=== PATIENT | male | born 1940 | race Caucasian/White ===

== ENCOUNTER 2016-06-11 08:30 | Emergency (ER) | payer MEDICARE, OTHER ==
[2016-06-11] MEDS ORDERED: BENZONATATE 100 MG CAPSULE PO STA (09:06)
[2016-06-11] MEDS ORDERED: DEXAMETHASONE 10 MG/ML VIAL PO STA (09:06)
[2016-06-11] MEDS ORDERED: CHERRY SYRUP 10 ML UDC PO ONE (09:10)
[2016-06-11] MEDS ORDERED: DEXAMETHASONE 10 MG/ML VIAL ONE (09:10)
[2016-06-11] MEDS ORDERED: BENZONATATE 100 MG CAPSULE PO ONE (09:10)
== END 2016-06-11 10:25 | disposition home or self-care (01) ==
DX: J18.9 Pneumonia, unspecified organism (principal); J06.9 Acute upper respiratory infection, unspecified; I10 Essential (primary) hypertension; I25.10 Atherosclerotic heart disease of native coronary artery without angina pectoris; Z95.1 Presence of aortocoronary bypass graft; Z79.82 Long term (current) use of aspirin
CPT/HCPCS: 71020; 99283; 99284; A9270

== ENCOUNTER 2016-09-26 07:58 | Outpatient (CLI) | payer MEDICARE, OTHER | END 2016-09-26 07:59 | disposition home or self-care (01) | DX: I42.0 Dilated cardiomyopathy (principal); N18.9 Chronic kidney disease, unspecified; I48.92 Unspecified atrial flutter; E78.5 Hyperlipidemia, unspecified; I10 Essential (primary) hypertension; I34.0 Nonrheumatic mitral (valve) insufficiency; I25.10 Atherosclerotic heart disease of native coronary artery without angina pectoris ==

== ENCOUNTER 2016-10-31 08:47 | Outpatient (CLI) | payer MEDICARE, OTHER ==
[2016-10-31 09:40] LABS: CALCIUM 8.9 mg/dL (8.5-10.3); CREATININE 1.4 mg/dL (0.6-1.2); POTASSIUM 4.5 mmol/L (3.5-5.0)
== END 2016-10-31 08:48 | disposition home or self-care (01) ==
LOC: LAB 08:47
PROVIDERS: ATTEND Specialist
DX: I48.92 Unspecified atrial flutter (principal); I42.0 Dilated cardiomyopathy; E78.5 Hyperlipidemia, unspecified; N18.9 Chronic kidney disease, unspecified; I12.9 Hypertensive chronic kidney disease with stage 1 through stage 4 chronic kidney disease, or unspecified chronic kidney disease; I24.0 Acute coronary thrombosis not resulting in myocardial infarction; I25.10 Atherosclerotic heart disease of native coronary artery without angina pectoris; D46.9 Myelodysplastic syndrome, unspecified
CPT/HCPCS: 36415; 80048; 83735; 84443

== ENCOUNTER 2017-01-01 06:44 | Emergency (ER) | payer MEDICARE, OTHER ==
--- NOTE | 2017-01-01 07:45 | ED Physician Documentation ---
History of Present Illness - Stated complaint Stated Complaint: MALE - Chief complaint Chief Complaint: UTI - History obtained from History obtained from: Patient - Additonal information Additional information: Patient is a 76-year-old male who complains of increasingly more difficulty in urinating. He has had these symptoms for about 10 days. He feels like his abdomen is a little full and has had some recent issues with constipation. He is both on doxazosin and taking stool softeners. He has a feeling that he cannot void completely. He denies any fever or chills. There is no nausea vomiting or lower urinary symptoms such as burning. This patient has a history of coronary disease and is status post bypass. He is currently on Pradaxa for atrial fibrillation flutter and has a history of chronic kidney disease and elevated platelets. He said his last creatinine was 1.5. He is not under the care of a urologist. Review of systems: For pertinent positive and negatives in the review of systems please see the history of present illness, otherwise all other systems have been reviewed and are negative. Dragon disclaimer: Parts of this medical record were created using voice recognition technology. Because of the inherent limitations of this system, occasional same sounding word substitutions do occur and persist despite proofreading. Please read the document for context. Review of Systems Unable to obtain: Uncooperative GI: reports: Constipation. denies: Abdominal Pain, Abdominal Swelling, Nausea, Vomiting, Diarrhea : reports: Hesitancy, Unable to Void. denies: Dysuria, Frequency, Hematuria, Discharge PD PAST MEDICAL HISTORY - Past Medical History Past Medical History: Yes Cardiovascular: Hypertension, Coronary artery disease, Atrial flutter Neuro: None Endocrine/Autoimmune: Other GI: GERD : Renal insuffiency Musculoskeletal: Osteoarthritis, Gout - Past Surgical History Past Surgical History: Yes General: Hiatal hernia repair, Colonoscopy Ortho: Shoulder arthroplasty Cardiovascular: CABG - Present Medications Home Medications: Ambulatory Orders Medication Instructions Recorded Confirmed Ascorbic Acid [Vitamin C] 500 mg PO DAILY 09/29/12 12/26/16 Metoprolol Tartrate 50 mg PO TID 11/07/14 12/26/16 Losartan [Cozaar] 50 mg PO BID 11/24/14 12/26/16 Pravastatin Sodium [Pravachol] 40 mg PO DAILY 11/24/14 12/26/16 Aspirin [Sukh] 81 mg PO DAILY 01/12/15 12/26/16 Cholecalciferol (Vitamin D3) 2,000 unit PO DAILY 01/12/15 12/26/16 [Vitamin D3] Doxazosin [Cardura] 2 mg PO DAILY 01/12/15 12/26/16 Famotidine 20 mg PO BID 01/12/15 12/26/16 Anagrelide HCl 5 tab PO DAILY 08/08/15 12/26/16 - Allergies Allergies/Adverse Reactions: Allergies Allergy/AdvReac Type Severity Reaction Status Date / Time codeine [Codeine] Allergy Intermediate Nausea Verified 01/01/17 06:56 - Social History Does the pt smoke?: No Smoking Status: Never smoker Does the pt drink ETOH?: No Does the pt have substance abuse?: No - Immunizations Immunizations are current?: Yes - POLST Patient has POLST: No PD ED PE NORMAL - Vitals Vital signs reviewed: Yes - General General: Alert and oriented X 3, No acute distress, Well developed/nourished - HEENT HEENT: Atraumatic, PERRL - Neck Neck: Supple, no meningeal sign, No bony TTP, No adenopathy - Cardiac Cardiac: No gallop, No rub, Other (Mostly regular rhythm with occasional irregularity noted) - Respiratory Respiratory: No respiratory distress, Clear bilaterally - Abdomen Abdomen: Normal bowel sounds, Soft, Non tender, Non distended - Male Male : Other (Normal exam) - Derm Derm: Normal color, Warm and dry - Extremities Extremities: No deformity, No tenderness to palpate, Normal ROM s pain, No edema - Neuro Neuro: Alert and oriented X 3, No motor deficit - Psych Psych: Normal mood, Normal affect Results - Vitals Vitals: Vital Signs - 24 hr 01/01/17 01/01/17 06:52 09:05 Temperature 36.2 C L 36.0 C L Heart Rate 74 76 Respiratory 18 16 Rate Blood Pressure 164/76 H 143/85 H O2 Saturation 100 99 Oxygen O2 Source Room air - Labs Labs: Laboratory Tests 01/01/17 01/01/17 01/01/17 07:40 07:50 07:50 WBC 4.0 L RBC 3.25 L Hgb 10.4 L Hct 31.7 L MCV 97.4 H MCH 32.1 H MCHC 32.9 RDW 20.5 H Plt Count 422 MPV 7.9 Manual Slide Review Indicated Sodium 138 Potassium 4.3 Chloride 106 Carbon Dioxide 24 Anion Gap 8.0 BUN 37 H Creatinine 1.7 H Estimated GFR (MDRD) 39 L Glucose 102 H Calcium 9.0 Urine Color YELLOW Urine Clarity CLEAR Urine pH 6.0 Ur Specific [place] <=1.005 Urine Protein NEGATIVE Urine Glucose (UA) NEGATIVE Urine Ketones NEGATIVE Urine Occult Blood NEGATIVE Urine Nitrite NEGATIVE Urine Bilirubin NEGATIVE Urine Urobilinogen 0.2 (NORMAL) Ur Leukocyte Esterase NEGATIVE Ur Microscopic Review NOT INDICATED Urine Culture Comments NOT INDICATED PD MEDICAL DECISION MAKING - ED course Complexity details: reviewed old records, reviewed results, re-evaluated patient , considered differential, d/w patient ED course: Pleasant 76-year-old male with difficulty urinating over the past 10 days. He is already on doxazosin. The urine was checked and is normal without evidence of infection that would suggest UTI or prostatitis. Quick ultrasound by me post void fails to show any severe significant urinary retention however his prostate does appear enlarged on my quick ultrasound examination. Blood work shows no significant abnormality other than mild increase in his creatinine from 1.5-1.7. Abdominal x-ray demonstrates mild fecal retention what might be causally related to some outlet obstruction. I am recommending that the patient increase fluids, continue the doxazosin, address constipation with Metamucil and continue consider prostate herbal supplementation. Disposition: To home Clinical impression: 1. Suspected BPH with mild urinary obstruction without urinary retention Departure - Departure Disposition: 01 Home, Self Care Clinical Impression: Prostatic hypertrophy, benign, with obstruction Condition: Good Instructions: ED Prostate Enlarged Follow-Up: Manuel Salgado MD [Primary Care Provider] - Comments: Your creatinine has increased to 1.7. There is no evidence of a urinary tract infection or any quick fix. I would continue the doxazosin and try to address the mild constipation seen on x-ray today. My personal recommendation is to increase soluble fiber intake with Metamucil and a lot of water. you might also try herbal supplementations for prostate disease including saw palmetto. If your urinary stream and obstruction worsens please return
[2017-01-01 07:59] LABS: BILIRUBIN,URINE NEGATIVE (NEGATIVE)
[2017-01-01 08:02] LABS: UA CHARGE (STRIP ONLY) YES; UR CULTURE IF IND NOT INDICATED
[2017-01-01 08:08] LABS: CREATININE 1.7 mg/dL (0.6-1.2); POTASSIUM 4.3 mmol/L (3.5-5.0)
[2017-01-01 08:10] LABS: BASOPHILS # (AUTO) 0.1 10^3/uL (0.0-0.1); EOSINOPHILS % (AUTO) 1.2 %; HCT - HEMATOCRIT 31.7 % (42.0-52.0); HGB - HEMOGLOBIN 10.4 g/dL (14.0-18.0); LYMPHOCYTES # (AUTO) 0.6 10^3/uL (1.5-3.5); MEAN CORPUSCULAR HEMOGLOBIN 32.1 pg (27.0-31.0); MEAN CORPUSCULAR HGB CONC 32.9 g/dL (32.0-36.0); MEAN CORPUSCULAR VOLUME 97.4 fL (80.0-94.0); MEAN PLATELET VOLUME 7.9 fL (7.4-11.4); MONOCYTES # (AUTO) 0.4 10^3/uL (0.0-1.0); MONOCYTES % (AUTO) 9.5 %; NEUTROPHILS # (AUTO) 2.8 10^3/uL (1.5-6.6); NEUTROPHILS % (AUTO) 71.3 %; NUCLEATED RED BLOOD CELLS AUTO 0.3 /100WBC; RED BLOOD COUNT 3.25 10^6/uL (4.70-6.10); RED CELL DISTRIBUTION WIDTH 20.5 % (12.0-15.0)
--- NOTE | 2017-01-01 08:35 | XRAY Preliminary Report ---
Exam: XR Abdomen 1 View IMPRESSION: Nonobstructive bowel gas pattern. [facility] SITE ID: [id number]
--- NOTE | 2017-01-01 08:38 | XRAY Report ---
EXAM: ABDOMEN RADIOGRAPHY EXAM DATE: 01/01/2017 08:10 AM. CLINICAL HISTORY: Gen ab pain, inability to uurinate well. COMPARISON: None. TECHNIQUE: 1 view. FINDINGS: Bowel Gas Pattern: Within normal limits. No dilated loops. Other: Dextroscoliosis of the upper lumbar spine. IMPRESSION: Nonobstructive bowel gas pattern. [facility] Referring Provider Line: [phone] SITE ID: [id number]
[2017-01-01 09:06] VITALS: BP 143/85
[2017-01-01 09:19] LABS: PLATELET MORPHOLOGY RARE GIANT PLATELETS (NORMAL)
== END 2017-01-01 09:29 | disposition home or self-care (01) ==
LOC: ED 06:44
DX: N40.1 Benign prostatic hyperplasia with lower urinary tract symptoms (principal); N13.8 Other obstructive and reflux uropathy; I25.10 Atherosclerotic heart disease of native coronary artery without angina pectoris; Z95.1 Presence of aortocoronary bypass graft; I12.9 Hypertensive chronic kidney disease with stage 1 through stage 4 chronic kidney disease, or unspecified chronic kidney disease; N18.9 Chronic kidney disease, unspecified; I48.91 Unspecified atrial fibrillation; Z79.01 Long term (current) use of anticoagulants
CPT/HCPCS: 36415; 74000; 80048; 81001; 81003; 84153; 85025; 87086; 99283; 99284

== ENCOUNTER 2017-05-10 04:07 | Emergency (ER) | payer MEDICARE, OTHER ==
[2017-05-10 04:38] LABS: BASOPHILS # (AUTO) 0.1 10^3/uL (0.0-0.1); LYMPHOCYTES # (AUTO) 0.8 10^3/uL (1.5-3.5); MONOCYTES # (AUTO) 0.3 10^3/uL (0.0-1.0); MONOCYTES % (AUTO) 8.6 %; NEUTROPHILS # (AUTO) 2.8 10^3/uL (1.5-6.6)
[2017-05-10 04:45] LABS: ALBUMIN/GLOBULIN RATIO 1.8 (1.0-2.2); BASOPHILS % (AUTO) 2.1 %; BILIRUBIN,TOTAL 1.3 mg/dL (0.2-1.0); CALCIUM 9.1 mg/dL (8.5-10.3); CREATININE 1.5 mg/dL (0.6-1.2); EOSINOPHILS % (AUTO) 0.6 %; HCT - HEMATOCRIT 32.9 % (42.0-52.0); HGB - HEMOGLOBIN 10.8 g/dL (14.0-18.0); LYMPHOCYTES % (AUTO) 19.4 %; MEAN CORPUSCULAR HEMOGLOBIN 32.2 pg (27.0-31.0); MEAN CORPUSCULAR HGB CONC 32.9 g/dL (32.0-36.0); MEAN PLATELET VOLUME 7.8 fL (7.4-11.4); NEUTROPHILS % (AUTO) 69.3 %; NUCLEATED RED BLOOD CELLS AUTO 0.4 /100WBC; POTASSIUM 4.3 mmol/L (3.5-5.0); RED BLOOD COUNT 3.36 10^6/uL (4.70-6.10); TOTAL PROTEIN 6.7 g/dL (6.7-8.2); UNCORRECTED WHITE BLOOD COUNT 4.1 x10^3/uL; WHITE BLOOD COUNT 4.1 x10^3/uL (4.8-10.8)
--- NOTE | 2017-05-10 04:49 | ED Physician Documentation ---
History of Present Illness - Stated complaint Stated Complaint: ABD PAIN - Chief complaint Chief Complaint: Abd Pain - Additonal information Additional information: 76-year-old male Presents with concern about a palpable mass in his left upper quadrant. He reports several months of constipation that he has been treating with [id number] stool softeners. He first noticed something masslike 2 weeks ago. He has had no vomiting, no fevers. Review of Systems Ten Systems: 10 systems reviewed and negative Constitutional: reports: Other (no trauma) Eyes: reports: Reviewed and negative Ears: reports: Reviewed and negative Nose: reports: Reviewed and negative Throat: reports: Reviewed and negative Cardiac: reports: Reviewed and negative Respiratory: reports: Reviewed and negative GI: reports: Other (see hpi) : reports: Reviewed and negative Skin: reports: Reviewed and negative Musculoskeletal: reports: Reviewed and negative Neurologic: reports: Reviewed and negative PD PAST MEDICAL HISTORY - Past Medical History Cardiovascular: Hypertension, Coronary artery disease, Atrial flutter Neuro: None Endocrine/Autoimmune: Other GI: GERD : Renal insuffiency Musculoskeletal: Osteoarthritis, Gout Other Past Medical History: thrombocythemia - Past Surgical History Past Surgical History: Yes General: Hiatal hernia repair, Colonoscopy Ortho: Shoulder arthroplasty Cardiovascular: CABG - Present Medications Home Medications: Ambulatory Orders Medication Instructions Recorded Confirmed Ascorbic Acid [Vitamin C] 500 mg PO DAILY 09/29/12 05/10/17 Metoprolol Tartrate 50 mg PO TID 11/07/14 05/10/17 Losartan [Cozaar] 50 mg PO BID 11/24/14 05/10/17 Pravastatin Sodium [Pravachol] 40 mg PO DAILY 11/24/14 05/10/17 Cholecalciferol (Vitamin D3) 2,000 unit PO DAILY 01/12/15 05/10/17 [Vitamin D3] Doxazosin [Cardura] 2 mg PO DAILY 01/12/15 05/10/17 Famotidine 20 mg PO BID 01/12/15 05/10/17 Anagrelide HCl 5 tab PO DAILY 90 Days #450 capsule 04/19/17 05/10/17 Epoetin [Procrit] 40,000 unit SUBQ Q7D 05/10/17 05/10/17 - Allergies Allergies/Adverse Reactions: Allergies Allergy/AdvReac Type Severity Reaction Status Date / Time codeine [Codeine] Allergy Intermediate Nausea Verified 01/01/17 06:56 - Social History Does the pt smoke?: No Smoking Status: Never smoker Does the pt drink ETOH?: No Does the pt have substance abuse?: No - Immunizations Immunizations are current?: Yes - POLST Patient has POLST: No PD ED PE NORMAL - Vitals Vital signs reviewed: Yes - General General: Alert and oriented X 3, No acute distress - HEENT HEENT: PERRL - Neck Neck: Supple, no meningeal sign - Cardiac Cardiac: RRR, No murmur - Respiratory Respiratory: Clear bilaterally - Abdomen Abdomen: Normal bowel sounds, Soft, Non tender, Non distended, Other (Likely palpable spleen patient's left upper quadrant,) - Derm Derm: Warm and dry - Extremities Extremities: No deformity - Neuro Neuro: Alert and oriented X 3 - Psych Psych: Normal mood, Normal affect Results - Vitals Vitals: Vital Signs - 24 hr 05/10/17 05/10/17 04:14 05:51 Temperature 36.2 C L Heart Rate 92 65 Respiratory 18 18 Rate Blood Pressure 193/72 H 143/57 H O2 Saturation 99 100 Oxygen O2 Source Room air - Labs Labs: Laboratory Tests 05/10/17 05/10/17 04:18 04:18 WBC 4.1 L RBC 3.36 L Hgb 10.8 L Hct 32.9 L MCV 98.0 H MCH 32.2 H MCHC 32.9 RDW 20.0 H Plt Count 269 MPV 7.8 Neut # 2.8 Lymph # 0.8 L [place] # 0.3 Eos # 0.0 Baso # 0.1 Absolute Nucleated RBC 0.01 Nucleated RBC % 0.4 Manual Slide Review Indicated Platelet Estimate NORMAL (130-450,000) Platelet Morphology NORMAL APPEARANCE RBC Morph Micro Appear 1+ POIKILOCYTOSIS Sodium 137 Potassium 4.3 Chloride 104 Carbon Dioxide 24 Anion Gap 9.0 BUN 30 H Creatinine 1.5 H Estimated GFR (MDRD) 46 L Glucose 104 H Calcium 9.1 Total Bilirubin 1.3 H AST 16 ALT 17 Alkaline Phosphatase 96 Total Protein 6.7 Albumin 4.3 Globulin 2.4 Albumin/Globulin Ratio 1.8 PD MEDICAL DECISION MAKING - ED course ED course: Patient has large splenomegaly on CT of the abdomen. I have discussed these results with him and need to follow-up with his primary care doctor and possibly his lcsw about what the source of this may be. Discussed precautions for avoiding any injuries to the abdomen. We also discussed his lytic focus in his L3 vertebral body. He will follow-up with his primary care doctor regarding this.Return precautions reviewed. Creatinine 1.5 at patient's baseline. Hemoglobin, platelets,White blood cells within recent baseline. Departure - Departure Disposition: 01 Home, Self Care Clinical Impression: Splenomegaly, Constipation Condition: Good Follow-Up: Manuel Salgado MD [Primary Care Provider] - Comments: Your spleen is quite enlarged. You need to make an appointment with your regular doctor to discuss this. Your lcsw with also be able to help you. You should discuss with them whether this may be related to your medications. You should take care to ensure that you will not encounter any injuries to your abdomen as this can cause serious bleeding. (no contact sports, no snowboarding ) Return to the emergency department if you develop severeAbdominal pain, vomiting , inability to eat or drink. You also have a finding in your lower spine that you need to discuss with your doctor. Continue to take your stool softeners for your constipation. The enlargement of your spleen may be making this worse.
[2017-05-10] MEDS ORDERED: SODIUM CHLORIDE 0.9% 1,000 ML IV ONE (04:57)
[2017-05-10] MEDS ORDERED: IOPAMIDOL-300 100 ML VIAL ONE (05:06)
[2017-05-10 05:10] LABS: PLATELET ESTIMATE, MANUAL NORMAL (130-450,000) (NORMAL); PLATELET MORPHOLOGY NORMAL APPEARANCE (NORMAL)
[2017-05-10] MEDS ORDERED: IOPAMIDOL-300 100 ML VIAL IVP ONE (05:36)
--- NOTE | 2017-05-10 05:59 | CT Preliminary Report ---
Exam: CT ABDOMEN/PELVIS W/ IMPRESSION: 1. Splenomegaly measuring 20 cm. 2. Lytic focus in the L3 vertebral body which is indeterminate for benign versus malignant. 3. Mild cardiomegaly with prior median sternotomy. [facility] SITE ID: [id number]
--- NOTE | 2017-05-10 06:02 | CT Report ---
EXAM: CT ABDOMEN AND PELVIS EXAM DATE: 05/10/2017 05:22 AM. CLINICAL HISTORY: Abdominal mass. COMPARISONS: None. TECHNIQUE: Routine helical CT imaging was performed through the abdomen and pelvis. IV contrast: 70ML ISOVUE 300. Enteric contrast: No. Reconstructions: Coronal and sagittal. In accordance with CT protocol optimization, one or more of the following dose reduction techniques w ere utilized for this exam: automated exposure control, adjustment of mA and/or KV based on patient s ize, or use of iterative reconstructive technique. FINDINGS: Lung Bases: Mild bibasilar atelectasis. Median sternotomy. Mild cardiomegaly. Liver: No focal lesion identified. Gallbladder/Bile Ducts: Unremarkable. Spleen: Enlarged at 20 cm. Pancreas: Normal. Adrenal Glands: Normal. Kidneys: Bilateral cortical thinning. No obvious mass or hydronephrosis. Peritoneal Cavity/Bowel: No bowel obstruction seen. Trace amount of free fluid. No free air. No diver ticulitis. No lymphadenopathy. Appendix appears normal. Pelvic Organs: Normal. The bladder and visualized pelvic organs are within normal limits. Vasculature: Mild atherosclerosis. No aortic aneurysm. Bones: Degenerative changes in the spine. Mild grade 1 degenerative spondylolisthesis at L4-L5 and L5 -S1. Scoliosis. Lytic focus in the L3 vertebral body. Other: None. IMPRESSION: 1. Splenomegaly measuring 20 cm. 2. Lytic focus in the L3 vertebral body which is indeterminate for benign versus malignant. 3. Mild cardiomegaly with prior median sternotomy. [facility] Referring Provider Line: [phone] SITE ID: [id number]
[2017-05-10 06:46] VITALS: BP 144/64
== END 2017-05-10 06:46 | disposition home or self-care (01) ==
LOC: ED 04:07
DX: R16.1 Splenomegaly, not elsewhere classified (principal); K59.00 Constipation, unspecified; D47.3 Essential (hemorrhagic) thrombocythemia; I10 Essential (primary) hypertension; I25.10 Atherosclerotic heart disease of native coronary artery without angina pectoris; Z95.1 Presence of aortocoronary bypass graft
CPT/HCPCS: 36415; 74177; 80053; 85025; 96360; 99283; 99284; Q9967

== ENCOUNTER 2017-06-01 12:42 | Outpatient (CLI) | payer MEDICARE, OTHER ==
[2017-06-01] MEDS ORDERED: GADOBUTROL 7.5 MMOL/7.5 ML VIAL ONE (12:48)
[2017-06-01] MEDS ORDERED: GADOBUTROL 7.5 MMOL/7.5 ML VIAL IVP ONE (13:35)
--- NOTE | 2017-06-02 16:22 | MRI Report ---
EXAM: MRI LUMBAR SPINE WITHOUT AND WITH CONTRAST EXAM DATE: 06/01/2017 01:52 PM. CLINICAL HISTORY: Lytic bone lesions on x-ray. Enlarged spleen. COMPARISONS: CT 05/10/2017. TECHNIQUE: Multiplanar, multisequence T1-weighted and fluid-sensitive sequences of the lumbar spine f rom T12 to S1 before and after administration of intravenous contrast. Other: None. IV contrast: Gado linium. FINDINGS: Spinal Cord: The conus terminates at L1. The conus medullaris and cauda equina are unremarkable. Alignment: The yeast pusher image demonstrates a leftward lumbar scoliosis with a Jordan angle of 21 degrees f rom L2 to L5 on this [id number] examination. Bone Marrow: The prior CT demonstrates that T12 is a transitional vertebral body with only a right-si ded rib. No fractures. Type II endplate change is at T12/L1, L1-L2, L2-L3, and L3-L4. No marrow edema . There is a benign hemangioma within the L3 vertebral body. Disk Levels/Facets: All visualized intervertebral disks are desiccated. T11-T12: Moderate disk height loss is accompanied by anterior endplate spurring. A posterior disk/ost eophyte complex and moderate facet osteoarthritis result in mild spinal canal and moderate left donnie inal narrowing. T12-l1: Moderate disk height loss is accompanied by anterior endplate spurring. A posterior disk/oste ophyte complex and mild facet osteoarthritis result in mild spinal canal and mild left foraminal narr owing. L1-L2: Mild disk height loss is accompanied by anterior endplate spurring. A broad-based disk bulge a nd mild ligamentum flavum hypertrophy result in mild spinal canal, mild right foraminal, and minimal left foraminal narrowing. L2-L3: Severe disk height loss is accompanied by anterior endplate spurring. A posterior disk/osteoph yte complex, moderate ligamentum flavum hypertrophy, and mild facet hypertrophy result in mild spinal canal and bilateral foraminal narrowing. L3-L4: Moderate disk height loss is accompanied by anterior endplate spurring. A posterior disk/osteo phyte complex, mild ligamentum flavum hypertrophy, and mild bilateral facet hypertrophy result in mil d spinal canal, moderate right foraminal, and mild left foraminal narrowing. L4-L5: Moderate disk height loss is accompanied by anterior endplate spurring. A broad-based posterio r disk protrusion, mild ligamentum flavum hypertrophy, and moderate bilateral facet hypertrophy resul t in mild spinal canal, moderate right foraminal, and minimal left foraminal narrowing. L5-S1: A broad-based posterior disk protrusion and mild facet hypertrophy result in minimal spinal ca nal and moderate right foraminal narrowing. Spinal Canal: No enhancing masses within the spinal canal. No epidural abscess. Musculature: Mild edema is in the bilateral posterior paraspinal musculature. This may represent musc ular strain. Other: The visualized retroperitoneum is unremarkable. IMPRESSION: 1. Moderate leftward lumbar scoliosis. 2. Transitional T12 vertebral body. 3. Benign hemangioma within L3. 4. Mild spinal canal and moderate left foraminal narrowing at T11-T12 due to disk and posterior eleme nt degenerative changes. 5. Mild spinal canal and left foraminal narrowing at T12/L1 due to disk and posterior element degener ative changes. 6. Mild spinal canal and right foraminal narrowing at L1-L2 due to disk and posterior element degener ative changes. 7. Mild spinal canal and bilateral foraminal narrowing at L2-L3 due to disk and posterior element deg enerative changes. 8. Mild spinal canal, moderate right foraminal, and mild left foraminal narrowing at L3-L4 due to dis k and posterior element degenerative changes. 9. Mild spinal canal, moderate right foraminal narrowing at L4-L5 due to disk and posterior element d egenerative changes. 10. Moderate right foraminal narrowing at L5-S1 due to disk and posterior element degenerative change s. Comment: The following findings are so common in adults without low back pain that while we report th eir presence, they must be interpreted with caution and in the context of the clinical situation. (Re danay San et al, Spine 2001) Prevalence of findings in patients without low back pain: Disk degeneration (any evidence): 92% Disk desiccation/T2 signal loss: 83% Disk height loss: 56% Disk bulge: 64% Disk protrusion: 32% Annular tear/high intensity zone: 38% [facility] Referring Provider Line: [phone] SITE ID: [id number]
== END 2017-06-01 12:43 | disposition home or self-care (01) ==
LOC: DI 12:42
PROVIDERS: ATTEND Family Medicine
DX: M51.36 Other intervertebral disc degeneration, lumbar region (principal); M51.34 Other intervertebral disc degeneration, thoracic region; M47.896 Other spondylosis, lumbar region; M47.894 Other spondylosis, thoracic region; M51.26 Other intervertebral disc displacement, lumbar region; M41.86 Other forms of scoliosis, lumbar region; D18.09 Hemangioma of other sites
CPT/HCPCS: 72158; A9585

== ENCOUNTER 2017-12-04 08:01 | Outpatient (CLI) | payer MEDICARE, OTHER | END 2017-12-04 08:02 | disposition home or self-care (01) | LOC: LAB 08:01 | PROVIDERS: ATTEND Specialist | DX: I10 Essential (primary) hypertension (principal); E78.5 Hyperlipidemia, unspecified | CPT/HCPCS: 83735 ==

== ENCOUNTER 2018-01-01 07:44 | Outpatient (CLI) | payer MEDICARE, OTHER ==
[2018-01-01 08:23] LABS: BASOPHILS % (AUTO) 2.9 %; MEAN CORPUSCULAR HEMOGLOBIN 32.8 pg (27.0-31.0); MEAN CORPUSCULAR HGB CONC 34.1 g/dL (32.0-36.0); MEAN CORPUSCULAR VOLUME 96.1 fL (80.0-94.0); MEAN PLATELET VOLUME 7.4 fL (7.4-11.4); MONOCYTES % (AUTO) 7.2 %; NEUTROPHILS % (AUTO) 71.9 %; PLT - PLATELET COUNT 234 10^3/uL (130-450); RED BLOOD COUNT 3.37 10^6/uL (4.70-6.10); RED CELL DISTRIBUTION WIDTH 18.2 % (12.0-15.0); WHITE BLOOD COUNT 4.9 x10^3/uL (4.8-10.8)
[2018-01-01 08:42] LABS: ALBUMIN 4.1 g/dL (3.2-5.5); ALBUMIN/GLOBULIN RATIO 1.6 (1.0-2.2); BILIRUBIN,TOTAL 0.9 mg/dL (0.2-1.0); CALCIUM 9.1 mg/dL (8.5-10.3); CREATININE 1.5 mg/dL (0.6-1.2); TOTAL PROTEIN 6.6 g/dL (6.7-8.2); URIC ACID 12.1 mg/dL (2.6-7.2)
[2018-01-01 08:44] LABS: ABNORMAL LYMPHS % (MANUAL) 0 %
[2018-01-01 08:48] LABS: BAND NEUTROPHILS % (MANUAL) 8 %; LYMPHOCYTES # (MANUAL) 0.8 10^3/uL (1.5-3.5); LYMPHOCYTES % (MANUAL) 17 %; METAMYELOCYTES % (MANUAL) 8 %; MONOCYTES # (MANUAL) 0.3 10^3/uL (0.0-1.0); MYELOCYTES % (MANUAL) 2 %; NEUTROPHILS # (MANUAL) 3.2 10^3/uL (1.5-6.6); NEUTROPHILS % (MANUAL) 57 %
[2018-01-01 08:51] LABS: DIFFERENTIAL COMMENT MANUAL DIFFERENTIAL; PLATELET ESTIMATE, MANUAL NORMAL (130-450,000) (NORMAL); PLATELET MORPHOLOGY NORMAL APPEARANCE (NORMAL)
== END 2018-01-01 07:45 | disposition home or self-care (01) ==
LOC: LAB 07:44
PROVIDERS: ATTEND Family Medicine
DX: M1A.2 Drug-induced chronic gout (principal)
CPT/HCPCS: 36415; 80053; 84550; 85025; 85651

== ENCOUNTER 2018-04-09 09:30 | Outpatient (CLI) | payer MEDICARE, OTHER ==
--- NOTE | 2018-04-09 09:56 | XRAY Report ---
Reason: KNOWN GOUT Procedure Date: 04/09/2018 Accession Number: [id number] / [id number] Procedure: XR - Finger(s) LT CPT Code: FULL RESULT: EXAM: LEFT 1st/2nd/3rd/4th/5th DIGIT RADIOGRAPHY EXAM DATE: 04/09/2018 09:39 AM. CLINICAL HISTORY: Known gout. Swelling in left index finger for months. COMPARISON: None. TECHNIQUE: 3 views. FINDINGS: Bones: Normal. No fracture or bone lesion. Joints: Normal. No subluxations. Soft Tissues: There is focal soft tissue swelling along the ulnar aspect of the DIP second digit slightly increased in density relative to other soft tissues. 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 [facility]
== END 2018-04-09 09:31 | disposition home or self-care (01) ==
LOC: DI 09:30
PROVIDERS: ATTEND Internal Medicine
DX: M1A.0421 Idiopathic chronic gout, left hand, with tophus (tophi) (principal)
CPT/HCPCS: 73140

== ENCOUNTER 2018-09-05 18:21 | Emergency (ER) | payer MEDICARE, OTHER ==
[2018-09-05 18:31] VITALS: BP 168/51
--- NOTE | 2018-09-05 20:29 | XRAY Report ---
Reason: L index finger swelling, poss FB Procedure Date: 09/05/2018 Accession Number: [id number] / [id number] Procedure: XR - Finger(s) LT CPT Code: FULL RESULT: EXAM: LEFT SECOND DIGIT RADIOGRAPHY EXAM DATE: 09/05/2018 07:40 PM. CLINICAL HISTORY: Left index finger swelling, possible foreign body. COMPARISON: FINGER(S) LT 04/09/2018 9:34 AM. TECHNIQUE: 3 views. FINDINGS: Bones: No fracture, bony lesion or erosions identified, particularly in the region of the second DIP joint. Joints: Joint spaces are well preserved about the second digit. Minimal osteophytes present about the second MCP and PIP joints. More moderate osteoarthritis present about the first and third MCP joints. Soft Tissues: No radiopaque foreign body evident. Soft tissue swelling lateral to the second DIP joint is similar to prior exam. IMPRESSION: 1. No radiopaque foreign body. 2. Lateral second DIP joint region soft tissue swelling unchanged since prior exam. Gouty arthropathy remains a possibility. 3. No osseous erosions identified. Mild changes of osteoarthritis as described. [facility]
[2018-09-05] MEDS ORDERED: predniSONE 20 MG TABLET PO STA (20:46)
--- NOTE | 2018-09-05 20:52 | ED Physician Documentation ---
History of Present Illness - Stated complaint Stated Complaint: LT INDEX FINGER SWELLING/THORNS - Chief complaint Chief Complaint: Trauma Ext - History obtained from History obtained from: Patient - History of Present Illness Timing: How many days ago (2) Pain level max: 4 Pain level now: 3 - Additonal information Additional information: 78-year-old male presents with swelling of the left index finger ongoing for the past 2-3 days. He states that he had similar swelling a few months ago after he was working with [employer]. There is no redness, no swelling of the remainder of the digit. Does have a history of gout in his toes. No recent injury. Worse with movement and better with rest Review of Systems Constitutional: denies: Fever Skin: denies: Rash PD PAST MEDICAL HISTORY - Past Medical History Past Medical History: Yes Cardiovascular: Hypertension, Coronary artery disease, Atrial flutter Endocrine/Autoimmune: Other GI: GERD : Renal insuffiency Musculoskeletal: Osteoarthritis, Gout - Past Surgical History Past Surgical History: Yes General: Hiatal hernia repair, Colonoscopy Ortho: Shoulder arthroplasty Cardiovascular: CABG - Present Medications Home Medications: Ambulatory Orders Medication Instructions Recorded Confirmed Ascorbic Acid [Vitamin C] 500 mg PO DAILY 09/29/12 09/01/18 Metoprolol Tartrate 50 mg PO TID 11/07/14 09/01/18 Losartan [Cozaar] 100 mg PO BID 11/24/14 09/01/18 Pravastatin Sodium [Pravachol] 40 mg PO DAILY 11/24/14 09/01/18 Cholecalciferol (Vitamin D3) 2,000 unit PO DAILY 01/12/15 09/01/18 [Vitamin D3] Doxazosin [Cardura] 2 mg PO DAILY 01/12/15 09/01/18 Epoetin [Procrit] 40,000 unit SUBQ Q7D 05/10/17 09/01/18 Furosemide 1 tab PO DAILY 12/04/17 09/01/18 amLODIPine [Norvasc] 10 mg PO DAILY 01/29/18 09/01/18 predniSONE [Prednisone] 40 mg PO DAILY #10 tablet 09/05/18 - Allergies Allergies/Adverse Reactions: Allergies Allergy/AdvReac Type Severity Reaction Status Date / Time codeine [Codeine] Allergy Intermediate Nausea Verified 09/05/18 18:30 - Social History Does the pt smoke?: No Smoking Status: Never smoker Does the pt drink ETOH?: No Does the pt have substance abuse?: No - Immunizations Immunizations are current?: Yes - POLST Patient has POLST: No PD ED PE NORMAL - Vitals Vital signs reviewed: Yes - General General: Alert and oriented X 3, No acute distress - Derm Derm: Warm and dry - Extremities Extremities: Other (Left index finger, DIP joint - Localized swelling, gouty tophi present. No redness. No streaks. No tenderness along the tendon sheath. Normal examination of the nail. Neurovascularly intact) - Neuro Neuro: Alert and oriented X 3 Results - Vitals Vitals: Vital Signs - 24 hr 09/05/18 09/05/18 09/05/18 18:29 19:29 20:58 Temperature 37.0 C Heart Rate 86 87 Respiratory 17 17 17 Rate Blood Pressure 168/51 H O2 Saturation 99 99 Oxygen O2 Source Room air - Rads (name of study) Left index finger x-ray Radiology: Prelim report reviewed, EMP read contemporaneously, See rad report (1. No radiopaque foreign body. 2. Lateral second DIP joint region soft tissue swelling unchanged since prior exam. Gouty arthropathy remains a possibility. 3. No osseous erosions identified. Mild changes of osteoarthritis as described. ) PD MEDICAL DECISION MAKING - ED course Complexity details: reviewed results, re-evaluated patient, considered differential, d/w patient ED course: 78-year-old male with what appears to be gouty arthritis to the left index finger. Tophi present. Will place on steroids and follow-up with his doctor. No evidence of infection. Patient counseled regarding signs and symptoms for which I believe and urgent re-evaluation would be necessary. Patient with good understanding of and agreement to plan and is comfortable going home at this time This document was made in part using voice recognition software. While efforts are made to proofread this document, sound alike and grammatical errors may occur. Departure - Departure Disposition: 01 Home, Self Care Clinical Impression: Tophaceous gout of joint Condition: Good Instructions: ED Arthritis Gout Follow-Up: Bran Dominguez MD [Primary Care Provider] - Within 1 week Prescriptions: predniSONE [Prednisone] 40 mg PO DAILY #10 tablet Comments: Take the steroids until gone. Return if you worsen. Follow-up with your doctor for further care. Discharge Date/Time: 09/05/18 20:59
== END 2018-09-05 20:59 | disposition home or self-care (01) ==
LOC: ED 18:21
DX: M10.9 Gout, unspecified (principal); I10 Essential (primary) hypertension; I25.10 Atherosclerotic heart disease of native coronary artery without angina pectoris; Z95.1 Presence of aortocoronary bypass graft
CPT/HCPCS: 73140; 99283; J7512

== ENCOUNTER 2023-06-21 11:55 | Emergency (ER) | payer MEDICARE, OTHER ==
--- NOTE | 2023-06-21 12:30 | ED Physician Documentation ---
History of Present Illness - Stated complaint Stated Complaint: LT SHOULDER PX - Chief complaint Chief Complaint: General - History obtained from History obtained from: Patient - Additonal information Additional information: 83-year-old gentleman with history of myelofibrosis with anemia neutropenia and splenomegaly. He is seen in our [facility] clinic. He has been transfusion dependent was last transfused a week ago. About 10 days ago give or take he was doing some exercises, a "plank," and feels like he injured his shoulder. There is no specific fall or anything like that though. He developed significant and progressive bruising in the left shoulder and chest wall and also a subconjunctival hemorrhage on the left. He states he is always had problems with bleeding and bruising issues but is not anticoagulated or on any antiplatelet agents. He did have labs drawn this morning at the [facility] clinic and his hemoglobin has been trending up, it was 7.4 today which is the best it has been for a while and his platelet count was 111. It has been a few months since he has had kidney function checked and was noted to have worsening kidney disease then. PD PAST MEDICAL HISTORY - Past Medical History Past Medical History: Yes Cardiovascular: Hypertension, Coronary artery disease, Atrial flutter Endocrine/Autoimmune: Other GI: GERD : Renal insuffiency Musculoskeletal: Osteoarthritis, Gout - Past Surgical History Past Surgical History: Yes General: Hiatal hernia repair, Colonoscopy Ortho: Shoulder arthroplasty Cardiovascular: CABG - Present Medications Home Medications: Ambulatory Orders Medication Instructions Recorded Confirmed Ascorbic Acid [Vitamin C] 500 mg PO DAILY 09/29/12 05/31/23 Losartan [Cozaar] 100 mg PO BID 11/24/14 05/31/23 Pravastatin Sodium [Pravachol] 40 mg PO DAILY 11/24/14 05/31/23 Cholecalciferol (Vitamin D3) 2,000 unit PO DAILY 01/12/15 05/31/23 [Vitamin D3] Doxazosin [Cardura] 4 mg PO DAILY 01/12/15 05/31/23 Epoetin [Procrit] 40,000 unit SUBQ Q7D 05/10/17 05/31/23 Furosemide 1 tab PO DAILY 12/04/17 05/31/23 amLODIPine [Norvasc] 10 mg PO DAILY 01/29/18 05/31/23 Ruxolitinib Phosphate [Jakafi] 20 mg PO BID 12/08/18 05/31/23 Atorvastatin [Lipitor] 20 mg PO DAILY 01/04/23 05/31/23 Metoprolol Succinate [Toprol Xl] 50 mg PO BID 01/04/23 05/31/23 Omeprazole 20 mg PO DAILY 01/04/23 05/31/23 allopurinoL [Zyloprim] 100 mg PO DAILY 01/04/23 05/31/23 Darbepoetin [Aranesp] 300 mcg SUBQ UD 03/22/23 05/31/23 - Allergies Allergies/Adverse Reactions: Allergies Allergy/AdvReac Type Severity Reaction Status Date / Time codeine [Codeine] Allergy Intermediate Nausea Verified 06/21/23 12:02 - Social History Does the pt smoke?: No Smoking Status: Never smoker Does the pt drink ETOH?: No Does the pt have substance abuse?: No - Immunizations Immunizations are current?: Yes - POLST Patient has POLST: No PD ED PE NORMAL - Vitals Vital signs reviewed: Yes - General General: Alert and oriented X 3, No acute distress - HEENT HEENT: PERRL, EOMI, Other (There is a subconjunctival hemorrhage on the medial left eye.) - Neck Neck: Supple, no meningeal sign, No bony TTP - Cardiac Cardiac: RRR, No murmur - Respiratory Respiratory: No respiratory distress, Clear bilaterally - Abdomen Abdomen: Non tender - Derm Derm: Normal color, Warm and dry - Extremities Extremities: Other (There is very significant bruising just inferior to the left anterior shoulder tracking down into the chest wall. Mild tenderness of the anterior left shoulder and decreased range of motion due to pain.) - Neuro Neuro: Alert and oriented X 3, Normal speech Results - Vitals Vitals: Vital Signs - 24 hr 06/21/23 06/21/23 06/21/23 11:59 12:32 14:11 Temperature 36.7 C Heart Rate 85 84 82 Respiratory 15 16 16 Rate Blood Pressure 138/73 H 132/82 H 138/83 H O2 Saturation 98 97 95 Oxygen O2 Source Room air - Labs Labs: Laboratory Tests 06/21/23 06/21/23 12:59 12:59 PT 11.8 INR 1.1 Sodium 137 Potassium 4.5 Chloride 107 Carbon Dioxide 26 Anion Gap 4.0 L BUN 46 H Creatinine 1.8 H Estimated GFR (MDRD) 36 L Glucose 99 Calcium 8.7 - Rads (name of study) Three-view x-ray of the left shoulder is unremarkable Relevant Findings:: Final report received, EMP independent interpretation of test PD Medical Decision Making - ED course ED course: From a blood loss perspective his blood counts are actually better than they have been, so although the bruising is remarkable, he does not need transfusion and his platelet count is improved over prior 2. Will check coags and renal function and a shoulder x-ray. Departure - Departure Disposition: Home, Self Care Clinical Impression: Spontaneous ecchymosis Condition: Good Record reviewed to determine appropriate education?: Yes Comments: I do not see any significant abnormality on your shoulder x-ray and your coagula tion numbers are normal. Your kidney function has improved slightly since the last time it was checked in March. You can use gentle heat on the area for pain and you can take Tylenol as well. Return for new or worsening symptoms. Forms: PCP List
[2023-06-21 13:12] LABS: INR 1.1 (0.8-1.2); PT - PROTHROMBIN TIME 11.8 secs (9.9-12.6)
[2023-06-21 13:18] LABS: CALCIUM 8.7 mg/dL (8.5-10.3); CREATININE 1.8 mg/dL (0.6-1.3); POTASSIUM 4.5 mmol/L (3.5-4.5)
[2023-06-21 14:14] VITALS: BP 138/83; O2SAT 95
--- NOTE | 2023-06-21 15:00 | XRAY Report ---
PROCEDURE: Shoulder 2+V LT INDICATIONS: Sholder inj TECHNIQUE: 3 views of the shoulder were acquired. COMPARISON: None FINDINGS: Bones: No fractures or dislocations. No suspicious bony lesions. Visualized ribs appear intact. Soft tissues: No suspicious soft tissue calcifications. IMPRESSION: Unremarkable shoulder radiographs Reviewed by: Mohit Méndez MD on 06/21/2023 1:59 PM [place] Approved by: Mohit Méndez MD on 06/21/2023 1:59 PM [facility] Station ID: [id number]
== END 2023-06-21 14:30 | disposition home or self-care (01) ==
LOC: ED 11:55
DX: M25.512 Pain in left shoulder (principal); R58 Hemorrhage, not elsewhere classified; I10 Essential (primary) hypertension; Z95.1 Presence of aortocoronary bypass graft
CPT/HCPCS: 36415; 80048; 85610; 99283; 99284

== ENCOUNTER 2023-12-21 07:41 | Emergency (ER) | payer MEDICARE, OTHER ==
--- NOTE | 2023-12-21 08:10 | ED Physician Documentation ---
PD HPI DYSPNEA - Stated complaint Stated Complaint: VERY SOA, LIGHT HEADED - Chief complaint Chief Complaint: Resp - History obtained from History obtained from: Patient - Additional information Additional information: This is an 83-year-old gentleman who presents by private vehicle with his . He has a history of myelofibrosis with severe anemia and transfusion dependence. His transfusion threshold is hemoglobin of 7.5, and 5 days ago was at 7.7. He has developed increased dyspnea and orthopnea since then. He denies chest pain or new pedal edema. He does have some chronic pedal edema. No cough. PD PAST MEDICAL HISTORY - Past Medical History Cardiovascular: Hypertension, Coronary artery disease, Atrial flutter Endocrine/Autoimmune: Other GI: GERD : Renal insuffiency Musculoskeletal: Osteoarthritis, Gout - Past Surgical History Past Surgical History: Yes General: Hiatal hernia repair, Colonoscopy Ortho: Shoulder arthroplasty Cardiovascular: CABG - Present Medications Home Medications: Ambulatory Orders Medication Instructions Recorded Confirmed Ascorbic Acid [Vitamin C] 500 mg PO DAILY 09/29/12 12/21/23 Cholecalciferol (Vitamin D3) 2,000 unit PO DAILY 01/12/15 12/21/23 [Vitamin D3] Doxazosin [Cardura] 4 mg PO DAILY 01/12/15 12/21/23 Furosemide 10 mg PO DAILY 12/04/17 12/21/23 Ruxolitinib Phosphate [Jakafi] 20 mg PO BID 12/08/18 12/21/23 Atorvastatin [Lipitor] 10 mg PO DAILY 01/04/23 12/21/23 Metoprolol Succinate [Toprol Xl] 50 mg PO BID 01/04/23 12/21/23 allopurinoL [Zyloprim] 100 mg PO DAILY 01/04/23 12/21/23 Darbepoetin [Aranesp] 300 mcg SUBQ UD 03/22/23 12/21/23 danazoL [Danazol] 200 mg PO DAILY 11/25/23 11/25/23 Tbo-Filgrastim [Granix] 1 applic SUBQ ONCE 12/21/23 12/21/23 - Allergies Allergies/Adverse Reactions: Allergies Allergy/AdvReac Type Severity Reaction Status Date / Time codeine [Codeine] Allergy Intermediate Nausea Verified 12/21/23 08:00 - Social History Does the pt smoke?: No Smoking Status: Never smoker Does the pt drink ETOH?: No Does the pt have substance abuse?: No - Immunizations Immunizations are current?: Yes - POLST Patient has POLST: No PD ED PE NORMAL - Vitals Vital signs reviewed: Yes - General General: Alert and oriented X 3, No acute distress - Cardiac Cardiac: RRR, No murmur - Respiratory Respiratory: No respiratory distress, Clear bilaterally - Abdomen Abdomen: Soft, Non tender - Back Back: No CVA TTP, No spinal TTP - Derm Derm: Normal color, Warm and dry - Extremities Extremities: Other (2-3+ pitting pedal edema, symmetric and chronic per patient.) - Neuro Neuro: Alert and oriented X 3 Results - Vitals Vitals: Vital Signs - 24 hr 12/21/23 12/21/23 12/21/23 07:55 09:59 10:14 Temperature 36.5 C 36.6 C Heart Rate 78 72 Heart Rate [ 75 Monitoring electrodes] Respiratory 16 18 16 Rate Blood Pressure 189/75 H 158/68 H Blood Pressure 164/74 H [Left Brachial artery] O2 Saturation 99 98 12/21/23 12/21/23 12/21/23 10:35 11:00 12:45 Temperature 36.6 C Heart Rate 70 Heart Rate [ 73 72 Monitoring electrodes] Respiratory 18 18 18 Rate Blood Pressure 158/68 H Blood Pressure 158/68 H 127/72 [Left Brachial artery] O2 Saturation 99 97 98 Oxygen O2 Source Room air - Labs Labs: Laboratory Tests 12/21/23 12/21/23 12/21/23 08:12 08:12 08:12 WBC 5.2 RBC 2.18 L Hgb 7.5 L Hct 24.4 L MCV 111.9 H MCH 34.4 H MCHC 30.7 L RDW 25.1 H Plt Count 134 MPV 10.0 Neut # (Auto) Not Reportable Lymph # (Auto) Not Reportable Bollinger # (Auto) Not Reportable Eos # (Auto) Not Reportable Baso # (Auto) Not Reportable Absolute Nucleated RBC Not Reportable Total Counted 100 Band Neuts % (Manual) 6 Abnorm Lymph % (Manual) 0 Metamyelocytes % 9 H Myelocytes % 7 H Nucleated RBC % Not Reportable Neutrophils # (Manual) 3.8 Lymphocytes # (Manual) 0.4 L Monocytes # (Manual) 0.2 Eosinophils # (Manual) 0.1 Basophils # (Manual) 0.0 Manual Slide Review Indicated WBC Morphology NORMAL APPEARANCE Platelet Estimate NORMAL (130-450,000) Platelet Morphology NORMAL APPEARANCE RBC Morph Micro Appear 1+ POLYCHROMASIA Sodium 137 Potassium 4.5 Chloride 108 Carbon Dioxide 23 Anion Gap 6.0 BUN 54 H Creatinine 2.5 H Estimated GFR (MDRD) 25 L Glucose 91 Calcium 8.8 Total Bilirubin 0.5 AST 24 ALT 29 Alkaline Phosphatase 54 Total Protein 5.7 L Albumin 3.8 Globulin 1.9 L Albumin/Globulin Ratio 2.0 Blood Type A POSITIVE Antibody Screen NEGATIVE Crossmatch IS Only See Detail - Rads (name of study) Single view chest x-ray showing cardiomegaly and moderate vascular patsy estion Relevant Findings:: Final report received, EMP independent interpretation of test PD Medical Decision Making - ED course ED course: 83-year-old gentleman with transfusion dependence presents with lightheadedness and shortness of breath which she feels is consistent with prior episodes of worsening anemia requiring transfusion. He is pale but hemodynamically stable. Initial CBC is notable for hemoglobin of 7.5 which is right at his transfusion threshold with macrocytosis. The macrocytosis is common. I discussed this with the patient at the bedside and he seems surprised. His recollection of the severity of his symptomatology would suggest to him that he is feeling too badly for a hemoglobin of 7.5. That said he is wanting a transfusion and that is reasonable but I will obtain a chest x-ray despite clear lungs to evaluate for alternative causes of shortness of breath. On my independent interpretation of his chest x-ray it does look like he has some CHF. Further history from the patient obtained, he was on a 20 mg dose of Lasix but recently halved that on the advice of his rn rehab. Now I believe that the combination of the CHF and fluid overload with the anemia is probably causing the severity of his symptoms. As such he is administered 40 mg of Lasix IV prior to transfusion. Departure - Departure Disposition: 01 Home, Self Care Clinical Impression: Symptomatic anemia Congestive heart failure Qualifiers: Heart failure type: unspecified Heart failure chronicity: acute on chronic Qu alified Code(s): I50.9 - Heart failure, unspecified Condition: Stable Instructions: ED CHF General Comments: As discussed, I think your shortness of breath and symptomatology today were a combination of your anemia as well as some congestive heart failure which may be related to the recent decrease in your furosemide dosing. You did receive a shot of furosemide here (40 mg and would recommend a low-sodium diet and increasing your furosemide back to 20 mg a day starting tomorrow. Follow-up with the heme-onc nurse practitioner on Saturday as scheduled. Return if worse. Forms: PCP List
[2023-12-21 08:20] LABS: BASOPHILS % (AUTO) 0.6 %; EOSINOPHILS % (AUTO) 0.4 %; HCT - HEMATOCRIT 24.4 % (42.0-52.0); HGB - HEMOGLOBIN 7.5 g/dL (14.0-18.0); LYMPHOCYTES % (AUTO) 10.1 %; MEAN CORPUSCULAR HEMOGLOBIN 34.4 pg (27.0-31.0); MEAN CORPUSCULAR HGB CONC 30.7 g/dL (32.0-36.0); MEAN CORPUSCULAR VOLUME 111.9 fL (80.0-94.0); MONOCYTES % (AUTO) 4.5 %; NEUTROPHILS % (AUTO) 70.3 %; PLT - PLATELET COUNT 134 10^3/uL (130-450); RED BLOOD COUNT 2.18 10^6/uL (4.70-6.10); RED CELL DISTRIBUTION WIDTH 25.1 % (12.0-15.0); WHITE BLOOD COUNT 5.2 x10^3/uL (4.8-10.8)
[2023-12-21 08:22] LABS: SLIDE REVIEW? Indicated
[2023-12-21 08:23] LABS: ABNORMAL LYMPHS % (MANUAL) 0 %
[2023-12-21 08:50] LABS: ALBUMIN 3.8 g/dL (3.2-5.5); BILIRUBIN,TOTAL 0.5 mg/dL (0.2-1.0); CALCIUM 8.8 mg/dL (8.5-10.3); CREATININE 2.5 mg/dL (0.6-1.3); POTASSIUM 4.5 mmol/L (3.5-4.5); TOTAL PROTEIN 5.7 g/dL (6.4-8.9)
[2023-12-21 08:53] LABS: BAND NEUTROPHILS % (MANUAL) 6 %; EOSINOPHILS # (MANUAL) 0.1 10^3/uL (0-0.7); LYMPHOCYTES # (MANUAL) 0.4 10^3/uL (1.5-3.5); LYMPHOCYTES % (MANUAL) 7 %; METAMYELOCYTES % (MANUAL) 9 %; MONOCYTES # (MANUAL) 0.2 10^3/uL (0.0-1.0); MYELOCYTES % (MANUAL) 7 %; NEUTROPHILS # (MANUAL) 3.8 10^3/uL (1.5-6.6)
[2023-12-21 08:56] LABS: PLATELET ESTIMATE, MANUAL NORMAL (130-450,000) (NORMAL); PLATELET MORPHOLOGY NORMAL APPEARANCE (NORMAL)
[2023-12-21 08:57] LABS: WBC MORPHOLOGY (MULTIPLE) NORMAL APPEARANCE (NORMAL)
[2023-12-21] MEDS: FUROSEMIDE 40 MG/4 ML VIAL IVP STA (09:17)
--- NOTE | 2023-12-21 09:20 | XRAY Report ---
PROCEDURE: Chest 1V INDICATIONS: dyspnea TECHNIQUE: One view of the chest was acquired. COMPARISON: None FINDINGS: Surgical changes and devices: Right shoulder tendon anchors Lungs and pleura: Heart size enlarged. Moderate vascular congestion with underlying patchy pulmonary infiltrate. Midline sternotomy wires noted. Bones and chest wall: No suspicious bony lesions. Overlying soft tissues appear unremarkable. IMPRESSION: Cardiomegaly, moderate vascular congestion, and patchy centralized pulmonary infiltrate. Infection ve rsus edema. Reviewed by: Mohit Méndez MD on 12/21/2023 8:18 AM [facility] Approved by: Mohit Méndez MD on 12/21/2023 8:18 AM [facility] Station ID: [id number]
[2023-12-21 13:40] VITALS: BP 169/74; O2SAT 91
== END 2023-12-21 13:37 | disposition home or self-care (01) ==
LOC: ED 07:41
DX: I11.0 Hypertensive heart disease with heart failure (principal); I50.9 Heart failure, unspecified; I25.10 Atherosclerotic heart disease of native coronary artery without angina pectoris; I48.91 Unspecified atrial fibrillation; M10.9 Gout, unspecified; Z95.1 Presence of aortocoronary bypass graft; Z79.899 Other long term (current) drug therapy; D64.89 Other specified anemias
CPT/HCPCS: 36415; 36430; 71045; 80053; 85025; 86850; 86900; 86901; 86920; 96374; 99284; 99285; P9040

== ENCOUNTER 2024-01-11 10:09 | Emergency (ER) | payer MEDICARE, OTHER ==
--- NOTE | 2024-01-11 10:36 | ED Physician Documentation ---
PD HPI DYSPNEA - Stated complaint Stated Complaint: SOB,LIGHT HEADED - Chief complaint Chief Complaint: Resp - History obtained from History obtained from: Patient PD PAST MEDICAL HISTORY - Past Medical History Past Medical History: Yes Cardiovascular: Hypertension, Coronary artery disease, Atrial flutter Endocrine/Autoimmune: Other GI: GERD : Renal insuffiency Musculoskeletal: Osteoarthritis, Gout - Past Surgical History Past Surgical History: Yes General: Hiatal hernia repair, Colonoscopy Ortho: Shoulder arthroplasty Cardiovascular: CABG - Present Medications Home Medications: Ambulatory Orders Medication Instructions Recorded Confirmed Ascorbic Acid [Vitamin C] 500 mg PO DAILY 09/29/12 12/23/23 Cholecalciferol (Vitamin D3) 2,000 unit PO DAILY 01/12/15 12/23/23 [Vitamin D3] Doxazosin [Cardura] 4 mg PO DAILY 01/12/15 12/23/23 Furosemide 20 mg PO DAILY 12/04/17 12/23/23 Ruxolitinib Phosphate [Jakafi] 20 mg PO BID 12/08/18 12/23/23 Atorvastatin [Lipitor] 10 mg PO DAILY 01/04/23 12/23/23 Metoprolol Succinate [Toprol Xl] 50 mg PO BID 01/04/23 12/23/23 allopurinoL [Zyloprim] 100 mg PO DAILY 01/04/23 12/23/23 Darbepoetin [Aranesp] 300 mcg SUBQ UD 03/22/23 12/23/23 danazoL [Danazol] 200 mg PO DAILY 11/25/23 12/23/23 Tbo-Filgrastim [Granix] 1 applic SUBQ ONCE 12/21/23 12/23/23 - Allergies Allergies/Adverse Reactions: Allergies Allergy/AdvReac Type Severity Reaction Status Date / Time codeine [Codeine] Allergy Intermediate Nausea Verified 01/11/24 10:27 - Social History Does the pt smoke?: No Smoking Status: Never smoker Does the pt drink ETOH?: No Does the pt have substance abuse?: No - Immunizations Immunizations are current?: Yes - POLST Patient has POLST: No Results - Vitals Vitals: Vital Signs - 24 hr 01/11/24 10:20 Temperature 36.6 C Heart Rate 80 Respiratory 24 Rate Blood Pressure 88/66 L O2 Saturation 95 Oxygen O2 Source Room air Departure - Departure
[2024-01-11 10:47] LABS: BASOPHILS % (AUTO) 0.8 %; EOSINOPHILS % (AUTO) 0.2 %; HCT - HEMATOCRIT 21.7 % (42.0-52.0); LYMPHOCYTES % (AUTO) 7.5 %; MEAN CORPUSCULAR HEMOGLOBIN 35.8 pg (27.0-31.0); MEAN CORPUSCULAR HGB CONC 31.8 g/dL (32.0-36.0); MEAN CORPUSCULAR VOLUME 112.4 fL (80.0-94.0); MEAN PLATELET VOLUME 10.1 fL (7.4-11.4); MONOCYTES % (AUTO) 4.1 %; PLT - PLATELET COUNT 134 10^3/uL (130-450); RED BLOOD COUNT 1.93 10^6/uL (4.70-6.10); RED CELL DISTRIBUTION WIDTH 23.6 % (12.0-15.0); WHITE BLOOD COUNT 4.9 x10^3/uL (4.8-10.8)
[2024-01-11 10:52] LABS: HGB - HEMOGLOBIN 6.9 g/dL (14.0-18.0)
[2024-01-11 10:53] LABS: ABNORMAL LYMPHS % (MANUAL) 0 %
[2024-01-11 11:10] LABS: ALBUMIN 3.3 g/dL (3.2-5.5); ALBUMIN/GLOBULIN RATIO 1.7 (1.0-2.2); BILIRUBIN,TOTAL 0.5 mg/dL (0.2-1.0); CALCIUM 8.2 mg/dL (8.5-10.3); CREATININE 3.2 mg/dL (0.6-1.3); POTASSIUM 4.8 mmol/L (3.5-4.5); TOTAL PROTEIN 5.2 g/dL (6.4-8.9)
[2024-01-11] MEDS: SODIUM CHLORIDE 0.9% 500 ML IV STA (11:15)
[2024-01-11 11:17] LABS: TROPONIN I HIGH SENSITIVITY 48.3 ng/L (2.3-19.7)
[2024-01-11 11:18] LABS: BAND NEUTROPHILS % (MANUAL) 9 %; LYMPHOCYTES # (MANUAL) 0.2 10^3/uL (1.5-3.5); LYMPHOCYTES % (MANUAL) 5 %; METAMYELOCYTES % (MANUAL) 4 %; MONOCYTES # (MANUAL) 0.2 10^3/uL (0.0-1.0); NEUTROPHILS # (MANUAL) 4.3 10^3/uL (1.5-6.6)
[2024-01-11 11:19] LABS: DIFFERENTIAL COMMENT MANUAL DIFFERENTIAL; PLATELET ESTIMATE, MANUAL NORMAL (130-450,000) (NORMAL); PLATELET MORPHOLOGY NORMAL APPEARANCE (NORMAL)
--- NOTE | 2024-01-11 11:20 | XRAY Report ---
PROCEDURE: Chest 1V INDICATIONS: Chest pain TECHNIQUE: One view of the chest was acquired. COMPARISON: 12/21/2023 FINDINGS: Surgical changes and devices: Midline sternal wires Lungs and pleura: Patchy bilateral pulmonary infiltrates noted particularly in the left upper lobe Mediastinum: Mediastinal contours appear normal. Heart size is enlarged Bones and chest wall: No suspicious bony lesions. Overlying soft tissues appear unremarkable. IMPRESSION: Patchy bilateral pulmonary infiltrates consistent with pneumonia Reviewed by: Mohit Méndez MD on 01/11/2024 10:18 AM [facility] Approved by: Mohit Méndez MD on 01/11/2024 10:18 AM [facility] Station ID: [id number]
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
[2024-01-11] MEDS: cefTRIAXone 1 GM in SODIUM CHLORIDE 0.9% MINIBAG 100 ML IV STA (12:51)
[2024-01-11] MEDS: AZITHROMYCIN INJ 500 MG in SODIUM CHLORIDE 0.9% 250 ML IV STA (13:30)
[2024-01-11 15:18] LABS: B. PARAPERTUSSIS- RESP PCR PAN NOT DETECTED; B. PERTUSSIS- RESP PCR PANEL NOT DETECTED; C. PNEUMONIAE- RESP PCR PANEL NOT DETECTED; CORONAVIRUS 229E-RESP PCR NOT DETECTED; CORONAVIRUS HKU1-RESP PCR NOT DETECTED; CORONAVIRUS NL63-RESP PCR NOT DETECTED; CORONAVIRUS OC43-RESP PCR NOT DETECTED; HUMAN METAPNEUMOVIRUS NOT DETECTED; INFLUENZA A- RESP PCR PANEL NOT DETECTED; INFLUENZA B - RESP PCR PANEL NOT DETECTED; M. PNEUMONIAE- RESP PCR PANEL NOT DETECTED; PARAINFLUENZA VIRUS 1 NOT DETECTED; PARAINFLUENZA VIRUS 2 NOT DETECTED; PARAINFLUENZA VIRUS 3 NOT DETECTED; PARAINFLUENZA VIRUS 4 NOT DETECTED; RHINOVIRUS/ENTEROVIRUS NOT DETECTED; RSV- RESP PCR PANEL NOT DETECTED; SARS-CoV-2 -RESP PCR PANEL NOT DETECTED
[2024-01-11 15:41] VITALS: BP 117/80; O2SAT 97
== END 2024-01-11 15:35 | disposition home or self-care (01) ==
LOC: ED 10:09
DX: J18.9 Pneumonia, unspecified organism (principal); N17.9 Acute kidney failure, unspecified; I11.0 Hypertensive heart disease with heart failure; I50.9 Heart failure, unspecified; Z79.899 Other long term (current) drug therapy
CPT/HCPCS: 36415; 36430; 71045; 80053; 83690; 83735; 83880; 84484; 85025; 86850; 86900; 86901; 86920; 87633; 93005; 99284; 99285; P9040; 84145; 87040

== ENCOUNTER 2024-01-14 16:33 | Emergency (ER) | payer MEDICARE, OTHER ==
[2024-01-14 16:54] VITALS: BP 119/77; O2SAT 97
== END 2024-01-14 17:47 | disposition left against medical advice (07) ==
LOC: ED 16:33
DX: Z53.21 Procedure and treatment not carried out due to patient leaving prior to being seen by health care provider (principal)

== ENCOUNTER 2024-01-22 19:55 | Inpatient (IN) | payer MEDICARE, OTHER ==
--- NOTE | 2024-01-22 20:04 | ED Physician Documentation ---
History of Present Illness - Stated complaint Stated Complaint: SOA - History obtained from History obtained from: Patient - Additonal information Additional information: Patient is an 83-year-old male presenting to the emergency department with past medical history of myelofibrosis requiring packed red blood cell transfusions persistent anemia every other week. Patient follows with oncology here at the [facility]. Patient has past medical history also remarkable for atrial fibrillation, CHF on Lasix 20 mg and recent pneumonia that he was diagnosed with about 2 weeks ago. Patient finished antibiotics for this today with antibiotics and azithromycin. Patient went to his PCP this morning and they instructed he come to the emergency department for worsening shortness of breath. Patient started on 2 L nasal cannula oxygen on arrival for hypoxia 80% on arrival. Patient improving with such radiation here in the emergency department. Patient notes worsening leg swelling today despite continue to take 20 mg of Lasix at home. Patient notes no appreciable wheezing he continues to have orthopnea at home. He denies any fevers or chills but has persistent cough at home with the symptoms. Patient's last blood transfusion was PD PAST MEDICAL HISTORY - Past Medical History Cardiovascular: Hypertension, Coronary artery disease, Atrial flutter Endocrine/Autoimmune: Other GI: GERD : Renal insuffiency Musculoskeletal: Osteoarthritis, Gout - Past Surgical History Past Surgical History: Yes General: Hiatal hernia repair, Colonoscopy Ortho: Shoulder arthroplasty Cardiovascular: CABG - Present Medications Home Medications: Ambulatory Orders Medication Instructions Recorded Confirmed Ascorbic Acid [Vitamin C] 500 mg PO DAILY 09/29/12 01/20/24 Cholecalciferol (Vitamin D3) 2,000 unit PO DAILY 01/12/15 01/20/24 [Vitamin D3] Doxazosin [Cardura] 4 mg PO DAILY 01/12/15 01/20/24 Furosemide 20 mg PO DAILY 12/04/17 01/20/24 Atorvastatin [Lipitor] 20 mg PO DAILY 01/04/23 01/20/24 Metoprolol Succinate [Toprol Xl] 50 mg PO DAILY 01/04/23 01/20/24 allopurinoL [Zyloprim] 100 mg PO DAILY 01/04/23 01/20/24 Darbepoetin [Aranesp] 300 mcg SUBQ UD 03/22/23 01/20/24 danazoL [Danazol] 200 mg PO BID 11/25/23 01/20/24 Tbo-Filgrastim [Granix] 1 applic SUBQ ONCE 12/21/23 01/20/24 Amox/Clav 875/125 [Augmentin] 1 each PO Q12H #20 tablet 01/11/24 01/20/24 Azithromycin [Zithromax] 1 tab PO DAILY #4 tab 01/11/24 01/20/24 Clobetasol Propionate 1 applic TOP BID PRN 01/11/24 01/20/24 Ruxolitinib Phosphate [Jakafi] 20 mg PO BID 01/11/24 01/20/24 fluorouraciL [Efudex] 1 applic TOP BID PRN 01/11/24 01/20/24 - Allergies Allergies/Adverse Reactions: Allergies Allergy/AdvReac Type Severity Reaction Status Date / Time codeine [Codeine] Allergy Intermediate Nausea Verified 01/22/24 20:08 - Social History Does the pt smoke?: No Smoking Status: Never smoker Does the pt drink ETOH?: No Does the pt have substance abuse?: No - Immunizations Immunizations are current?: Yes - POLST Patient has POLST: No Results - Vitals Vitals: Vital Signs - 24 hr 01/22/24 01/22/24 01/22/24 20:08 20:40 21:24 Temperature 36.4 C L Heart Rate 73 74 70 Respiratory 21 25 H 22 Rate Blood Pressure 102/74 133/84 H 111/70 O2 Saturation 92 97 95 If not protocol 2 2 : Oxygen Flow, liters/minute Oxygen O2 Source Nasal cannula Oxygen Flow Rate 2 - EKG (time done) 8 EKG releavant findings:: EKG personally interpreted by author of this note. Relevant findings are: Rate: Rate (enter#), Fady, Tachy, Other Rhythm: Atrial fibrillation Dale: Normal QRS: Normal Ischemia: Normal ST segments Compare to prior EKG: Unchanged from prior EKG Computer interpretation: Agree with computer 2023 EKG releavant findings:: EKG personally interpreted by author of this note. Relevant findings are: Rate: Rate (enter#) Rhythm: Atrial fibrillation Dale: Normal QRS: Normal Ischemia: Normal ST segments Compare to prior EKG: Unchanged from prior EKG Computer interpretation: Agree with computer - Labs Labs: Laboratory Tests 01/22/24 01/22/24 01/22/24 20:13 20:13 20:13 WBC 7.5 RBC 2.08 L Hgb 7.4 L Hct 23.2 L MCV 111.5 H MCH 35.6 H MCHC 31.9 L RDW 23.1 H Plt Count 154 MPV 10.8 Neut # (Auto) Not Reportable Lymph # (Auto) Not Reportable [place] # (Auto) Not Reportable Eos # (Auto) Not Reportable Baso # (Auto) Not Reportable Absolute Nucleated RBC Not Reportable Total Counted 100 Band Neuts % (Manual) 3 Abnorm Lymph % (Manual) 0 Metamyelocytes % 1 H Nucleated RBC % Not Reportable Neutrophils # (Manual) 6.8 H Lymphocytes # (Manual) 0.5 L Monocytes # (Manual) 0.2 Eosinophils # (Manual) 0.0 Basophils # (Manual) 0.0 Differential Comment MANUAL DIFFERENTIAL Platelet Estimate NORMAL (130-450,000) Platelet Morphology NORMAL APPEARANCE RBC Morph Micro Appear 1+ SCHISTOCYTES PT 13.3 H INR 1.2 Sodium 137 Potassium 4.4 Chloride 108 Carbon Dioxide 22 Anion Gap 7.0 BUN 58 H Creatinine 2.9 H Estimated GFR (MDRD) 21 L Glucose 110 H Calcium 7.8 L Magnesium 1.8 Total Bilirubin 0.5 AST 33 ALT 46 Alkaline Phosphatase 65 Troponin I High Sens 67.6 H* Total Protein 5.5 L Albumin 3.2 Globulin 2.3 Albumin/Globulin Ratio 1.4 PD Medical Decision Making - ED course Complexity details: reviewed old records, reviewed results, re-evaluated patient ED course: Patient is an 83-year-old male presenting to the emergency department with past medical history of CHF myelofibrosis, anemia secondary to myelofibrosis requiring biweekly transfusions history of ARASH/CKD and atrial fibrillation. Patient presents to the emergency department with worsening leg swelling shortness of breath. On arrival patient started on 2 L nasal cannula for hypoxia on arrival. Patient on physical exam has diminished breath sounds on auscultation with crackles and rails on auscultation of bilateral lungs and 3+ p itting edema to lower extremities. Patient is on Lasix 20 mg daily he has not missed any doses. Vitals on 2 L patient saturating at 95% no signs of tachypnea blood pressure soft at 103 SBP no tachycardia appreciated. EKG obtained here in the emergency department showing no signs of ACS compared to previous EKG on 01/08. Patient is troponin obtained here in emergency department elevated at 67. Previous troponin 2 weeks ago shows significant increase as baseline is closer to 48. Will repeat troponin here in emergency department at 2-hour marga. Chest x-ray obtained here in the emergency department does show findings concerning for left sided abscess given previous. Chest x-ray showed no pneumonia on 01/10 and symptoms continue to persist with enlarged opacity on left side of the lung at this time. 2130: Discussed case with pulmonology Dr. Akhtar at [facility] and he recommends transfer for further pulmonology workup. He is agreeable with cefepime and vancomycin IV antibiotics at this time. Blood cultures will be obtained prior to starting antibiotics. Discussed possible IV fungal treatment with him however he recommends holding off until further evaluation and management of abscess can be evaluated. He is agreeable with only chest x-ray being performed at this time given significant kidney dysfunction. Discussed case with patient he is agreeable with transfer. Discussed worsening kidney function with creatinine at 2.7 chest x-ray also showing findings of fluid overload and elevated troponin levels. Will repeat troponin here in the emergency department at 1015 at 2-hour marga and repeat EKG at this time as well to ensure no signs of ACS or worsening elevation in troponin. Patient will be transferred when bed is available at either [facility] or [facility] for further kayleen luation by pulmonology. Patient understands and is agreeable with this plan. Additionally given patient's anemia at 7.4 this does appear baseline for patient in the past he does receive transfusions at 7.5 or below however given concerning for fluid overload at this time we will hold off on blood transfusion. Patient understands and is agreeable iw this plan. 1020: Patient taken over by Dr. Cochran at this time.
[2024-01-22 20:23] LABS: BASOPHILS % (AUTO) 0.4 %; EOSINOPHILS % (AUTO) 0.1 %; HCT - HEMATOCRIT 23.2 % (42.0-52.0); HGB - HEMOGLOBIN 7.4 g/dL (14.0-18.0); LYMPHOCYTES % (AUTO) 5.6 %; MEAN CORPUSCULAR HEMOGLOBIN 35.6 pg (27.0-31.0); MEAN CORPUSCULAR HGB CONC 31.9 g/dL (32.0-36.0); MEAN CORPUSCULAR VOLUME 111.5 fL (80.0-94.0); MEAN PLATELET VOLUME 10.8 fL (7.4-11.4); NEUTROPHILS % (AUTO) 81.2 %; PLT - PLATELET COUNT 154 10^3/uL (130-450); RED BLOOD COUNT 2.08 10^6/uL (4.70-6.10); RED CELL DISTRIBUTION WIDTH 23.1 % (12.0-15.0); WHITE BLOOD COUNT 7.5 x10^3/uL (4.8-10.8)
[2024-01-22 20:26] LABS: ABNORMAL LYMPHS % (MANUAL) 0 %
[2024-01-22 20:31] LABS: INR 1.2 (0.8-1.2); PT - PROTHROMBIN TIME 13.3 secs (9.9-12.6)
[2024-01-22 20:38] LABS: ALBUMIN 3.2 g/dL (3.2-5.5); ALBUMIN/GLOBULIN RATIO 1.4 (1.0-2.2); BILIRUBIN,TOTAL 0.5 mg/dL (0.2-1.0); CALCIUM 7.8 mg/dL (8.5-10.3); CREATININE 2.9 mg/dL (0.6-1.3); MAGNESIUM 1.8 mg/dL (1.7-2.3); POTASSIUM 4.4 mmol/L (3.5-4.5); TOTAL PROTEIN 5.5 g/dL (6.4-8.9)
[2024-01-22 20:48] LABS: BAND NEUTROPHILS % (MANUAL) 3 %; LYMPHOCYTES # (MANUAL) 0.5 10^3/uL (1.5-3.5); LYMPHOCYTES % (MANUAL) 6 %; METAMYELOCYTES % (MANUAL) 1 %; MONOCYTES # (MANUAL) 0.2 10^3/uL (0.0-1.0); NEUTROPHILS # (MANUAL) 6.8 10^3/uL (1.5-6.6)
[2024-01-22 20:49] LABS: DIFFERENTIAL COMMENT MANUAL DIFFERENTIAL; PLATELET ESTIMATE, MANUAL NORMAL (130-450,000) (NORMAL); PLATELET MORPHOLOGY NORMAL APPEARANCE (NORMAL)
--- NOTE | 2024-01-22 20:55 | XRAY Report ---
PROCEDURE: Chest 2V INDICATIONS: sob, concern for fluid overload TECHNIQUE: 2 views of the chest were acquired. COMPARISON: 01/11/2024, 12/21/2023 FINDINGS: Surgical changes and devices: Median sternotomy changes Lungs and pleura: Persistent rounded opacity in left midlung. Right perihilar alveolar opacity 2 sim ilar degree. Bibasilar alveolar opacities and small bilateral pleural effusions. No pneumothorax. Mediastinum: Cardiomegaly and stable mediastinal contour. Indistinct. Bones and chest wall: No suspicious bony lesions. Surgical anchors in the right humeral head. Overl lorenzo soft tissues appear unremarkable. IMPRESSION: Persistent bilateral opacities with new bibasilar opacities and small pleural effusions. Pulmonary ed azra may have this appearance although infection is more likely given rapid development since December 17. The left opacity is rounded and raises possibility of pulmonary abscess, neoplasm less likely due to rapid development. Consider chest CT with contrast. Reviewed by: Kathya Bill MD on 01/22/2024 8:54 PM PDT Approved by: Kathya Bill MD on 01/22/2024 8:54 PM PDT Station ID: [id number]
[2024-01-22 21:03] LABS: TROPONIN I HIGH SENSITIVITY 67.6 ng/L (2.3-19.7)
[2024-01-22] MEDS: CEFEPIME 2 GM in SODIUM CHLORIDE 0.9% MINIBAG 100 ML IV STA (22:00)
[2024-01-22] MEDS ORDERED: VANCOMYCIN 1 GM VIAL ONE (22:14)
[2024-01-22] MEDS: VANCOMYCIN INJ 2 GM in SODIUM CHLORIDE 0.9% 500 ML IV ONE (22:35)
--- NOTE | 2024-01-23 00:50 | ED Physician Documentation ---
ED Addendum - Addendum Addendum: 01/23/24 02:04 Sign out at 10:43PM. This is an 83yo M with history of MDS who was recently treated for PNA outpatient on PO antibiotics, now returned with SOB and found on CXR to have possible abscess. Low eGFR precludes contrasted CT. Patient also anemic. Troponin elevation suspected to be NSTEMI II. PA spoke with Pulmonology who accepted for transfer due to potential pulmonary abscess, and who discussed holding CT and agreeing with current treatment as follows, awaiting bed at [facility] or . IV antibiotics being given, with patient on oxygen; no antifungals; blood transfusion being held to avoid risk of TACO per sign out. Patient stable. Family was updated. PLAN: monitor pending transfer. Repeat EKG afib with rate WNL, no clear acute ischemia or immediately concerning interval prolongation, morphology similar to prior. Repeat troponin: improved. I spoke with Dr. Hanson of [facility] at 12:51AM, reviewing case on phone. She accepts pending bed availability; given wait for bed (until morning potentially), however, we will obtain CT chest without contrast here if able. I have ordered CT. No other requests. I am also scheduling AM labs; due to eGFR, holding additional cefepime and vancomycin currently (would anticipate q24hr dosing). CT: I agree with radiology reads of imaging on my independent review of imaging "FINDINGS: Image quality: Diagnostic. Chest wall and lower neck: No thyroid nodule which requires sonographic follow up. No axillary or supraclavicular adenopathy by size. Lungs and pleura: Bilateral patchy moderately severe pneumonia, with adjacent small bilateral pleural effusions but no evidence of pulmonary abscess formation.1 No pneumothorax. No suspicious pulmonary nodules which require follow up. Mediastinum: Heart size is normal. No pericardial effusion. No large vessel abnormality. No mediastinal adenopathy by size criteria. Bones: No aggressive osseous abnormality. Upper Abdomen: Unremarkable. IMPRESSION: Moderately severe bilateral pneumonia with adjacent or pneumonic pleural effusions that are small insize. No pulmonary abscess formation found. Reviewed by: Pierre Bhardwja MD on 01/23/2024 1:28 AM PDT" Per communication to me at sign out, indication for transfer was specifically concern for pulmonary abscess. Given this does not appear to be present, will consult hospitalist here to discuss admission to this facility for PNA that failed outpatient PO antibiotics. Placed consult request at roughly 1:45AM. I spoke with Dr. Alexandra on phone at roughly 1:53AM, reviewing case; per our discussion, I will confirm with radiologist no abscess on CT, and if so then we can admit patient here. I spoke with Dr. Bhardwaj at 0204, reviewing CT imaging. He confirms there is no pulmonary abscess on CT. This is now consistent with PNA requiring admission. I am updating Dr. Alexandra to admit here and requested CHANGE CONTROL COORDINATOR also update prior receiving facilities. Admitting patient in stable condition. He is currently speaking with Dr. Alexandra via video.
--- NOTE | 2024-01-23 01:30 | CT Report ---
PROCEDURE: Chest WO INDICATIONS: assess for pulmonary abscess of other infection TECHNIQUE: A CT scan of the chest was performed. Intravenous contrast media was not administered. Images were re corded and evaluated at appropriate window settings. Reformats: axial MIP of the chest, coronal and s agittal. For radiation dose reduction, the following was used: automated exposure control, adjustment of mA and/or kV according to patient size. COMPARISON: Chest plain films 01/22/2024 and 12/21/2023. FINDINGS: Image quality: Diagnostic. Chest wall and lower neck: No thyroid nodule which requires sonographic follow up. No axillary or sup raclavicular adenopathy by size. Lungs and pleura: Bilateral patchy moderately severe pneumonia, with adjacent small bilateral pleural effusions but no evidence of pulmonary abscess formation.1 No pneumothorax. No suspicious pulmonary nodules which require follow up. Mediastinum: Heart size is normal. No pericardial effusion. No large vessel abnormality. No mediastin al adenopathy by size criteria. Bones: No aggressive osseous abnormality. Upper Abdomen: Unremarkable. IMPRESSION: Moderately severe bilateral pneumonia with adjacent or pneumonic pleural effusions that are small in size. No pulmonary abscess formation found. Reviewed by: Pierre Bhardwaj MD on 01/23/2024 1:28 AM PDT Approved by: Pierre Bhardwaj MD on 01/23/2024 1:28 AM PDT Station ID: [id number]
[2024-01-23] MEDS ORDERED: ONDANSETRON 4 MG/2 ML VIAL IVP PRN (02:00)
--- NOTE | 2024-01-23 02:27 | HISTORY & PHYSICAL EXAMINATION ---
Chief Complaint - Chief Complaint Chief Complaint: SOB and hypoxia at PCP office History of Present Illness - Admitted From Admitted From:: ED - History Obtained From Records Reviewed: EMR History obtained from: ED staff and EMR and patient Exam Limitations: tele medicine - History of Present Illness HPI Comment/Other: 83M c myelofibrosis, atrial fibrillation, and CHF who presents to the ED with report of being hypoxic at PCP's office. It is 2am and patient is not a good historian. Patient rambled and unable to provide much needed insight into his presentation. Patient delved into his CHF couple of months ago and back pain for past 6 months but was not able to provide needed details about his pneumonia. He states currently no pain. He feels better after the abx and no SOB while on NC. EMR noted that patient was recently diagnosed with pneumonia 2wks ago and was treated with outpatient abx Augmentin and Azithromycin. He presented to PCP office today and was noted to be hypoxemic and then sent into the ED for evaluation. Here, patient was noted for to hypoxemic 80% while on room air. Initial CXR citing possible pulm abscess and patient was planned for transfer. Meanwhile, patient underwent CT chest and was noted for no pulm abscess and only pleural effusion stemming from the PNA. ED staff reconfirmed this findings with oncall radiologist. History - Past Medical History Cardiovascular: reports: Hypertension, Coronary artery disease, Atrial flutter Endocrine/Autoimmune: reports: Other GI: reports: GERD : reports: Renal insuffiency Musculoskeletal: reports: Osteoarthritis, Gout MRSA Hx?: No - Past Surgical History General: reports: Hiatal hernia repair, Colonoscopy Ortho: reports: Shoulder arthroplasty Cardiovascular: reports: CABG - POLST Patient has POLST: No Meds/Allgy - Home Medications Home Medications: Ambulatory Orders Medication Instructions Recorded Confirmed Doxazosin [Cardura] 4 mg PO DAILY 01/12/15 01/20/24 Furosemide 20 mg PO DAILY 12/04/17 01/20/24 Metoprolol Succinate [Toprol Xl] 50 mg PO DAILY 01/04/23 01/20/24 allopurinoL [Zyloprim] 100 mg PO DAILY 01/04/23 01/20/24 danazoL [Danazol] 200 mg PO BID 11/25/23 01/20/24 Ruxolitinib Phosphate [Jakafi] 20 mg PO BID 01/11/24 01/20/24 - Allergies Allergies/Adverse Reactions: Allergies Allergy/AdvReac Type Severity Reaction Status Date / Time codeine [Codeine] Allergy Intermediate Nausea Verified 01/22/24 20:08 Review of Systems - Other Findings Other Findings: limited. poor historian. current noted for improved breathing and no SOB. No chest pain. Exam - Vital Signs Reviewed Vital Signs: Yes Vital Signs: Vital Signs x48h Temp Pulse Resp BP Pulse Ox O2 Flow Rate 01/23/24 01:00 67 18 125/62 94 2 01/22/24 23:00 66 24 120/74 94 01/22/24 21:24 70 22 111/70 95 2 01/22/24 20:40 74 25 H 133/84 H 97 2 01/22/24 20:08 36.4 C L 73 21 102/74 92 - Physical Exam General Appearance: positive: No acute distress Eyes Bilateral: positive: Normal inspection ENT: positive: ENT inspection nml Neck: positive: Nml inspection, Trachea midline Skin: positive: Color nml Neurologic/Psychiatric: positive: CN's nml (2-12). negative: Oriented x3 Comments/Other: alert. responding and following command. not fully oriented. moving all extremities. Conclusion/Plan - Problem List (1) Acute hypoxemic respiratory failure Conclusion/Plan: -likely due to PNA. possible component of CHF. empiric abx c breathing teatment. O2 support. iv Lasix while in the hospital. (2) Pneumonia Conclusion/Plan: -empiric abx. followup cultures. breathing treatment. O2 support. Qualifiers: Pneumonia type: due to unspecified organism Laterality: bilateral Lung location: unspecified part of lung Qualified Code(s): J18.9 - Pneumonia, unspecified organism (3) Atrial fibrillation and flutter Conclusion/Plan: -rate controlled. continue metoprolol. noted no DOAC on home meds. will consult pharm for med reconciliation assistance. monitor on tele. (4) Congestive heart failure Conclusion/Plan: -recent hosp admission for CHF exacerbation. currently resp failure 2/2 PNA. followup BNP. monitor I&O. daily weigh. fluid restrict. iv Lasix while in the hosp. monitor electrolytes in am. tele monitoring (5) Prostatic hypertrophy, benign, with obstruction Conclusion/Plan: -continue home BPH med doxazosin. prn bladder scan. prn straight cath (6) CKD stage 4 secondary to hypertension Conclusion/Plan: -stable CKD stage 4. avoid nephrotoxins. watch for fluid overload. monitor I&O. followup am electrolytes and renal function monitoring (7) Demand ischemia Conclusion/Plan: -noted elevated troponin in setting PNA and CKD 4 consistent with demand type 2 VA and not true ACS. no chest pain. monitor cardiac enzymes and tele monitoring. (8) Myelofibrosis Conclusion/Plan: -managed by outpatient heme. likely immunosuppressed. empiric abx for PNA. consider reaching out to outpatient heme regarding myelofibrosis as needed. monitor CBC. consider transfusion as needed. - Lab Results Lab results reviewed: Yes Fish Bones: 01/22/24 20:13 01/22/24 20:13 - Diagnostic Imaging Results Diagnostic Imaging Results: positive: Final report reviewed Core Measures - Anticipated LOS I expect patient to be DC'd or transferred within 96 hours.: Yes - Issues Hospital Issues and Management Plan: The patient consented to receive this telemedicine service, which I performed via live two-way audiovisual equipment. The patient is at ([facility]) and I am physically in [facility]. A nurse assisted me in the visit. Full code per patient SCDs Inpatient Agatha Alexandra DO Internal Medicine Sound Tele Artificial Candy Maker - DVT/VTE - Prophylaxis VTE/DVT Device ordered at admit?: Yes Telemedicine Consult Details - Provider Location & Consult Time Telemedicine consultation conducted via videoconferencing?: Yes List names and roles of persons who participated in consult:: ED staff and patient Telemedicine provider location:: [facility] Time Telemedicine consult began:: 01:51 Time Telemedicine consult completed:: 02:51
[2024-01-23] MEDS: DOXYCYCLINE INJ 100 MG in SODIUM CHLORIDE 0.9% MINIBAG 100 ML IV SCH (02:49)
[2024-01-23] MEDS: cefTRIAXone 2 GM in SODIUM CHLORIDE 0.9% MINIBAG 100 ML IV SCH (02:52)
[2024-01-23 05:38] LABS: BASOPHILS % (AUTO) 0.3 %; EOSINOPHILS % (AUTO) 0.3 %; HCT - HEMATOCRIT 21.8 % (42.0-52.0); HGB - HEMOGLOBIN 7.1 g/dL (14.0-18.0); LYMPHOCYTES % (AUTO) 8.2 %; MEAN CORPUSCULAR HEMOGLOBIN 36.4 pg (27.0-31.0); MEAN CORPUSCULAR HGB CONC 32.6 g/dL (32.0-36.0); MEAN CORPUSCULAR VOLUME 111.8 fL (80.0-94.0); MEAN PLATELET VOLUME 9.9 fL (7.4-11.4); MONOCYTES % (AUTO) 3.3 %; NEUTROPHILS % (AUTO) 77.8 %; PLT - PLATELET COUNT 117 10^3/uL (130-450); RED BLOOD COUNT 1.95 10^6/uL (4.70-6.10); RED CELL DISTRIBUTION WIDTH 23.2 % (12.0-15.0); WHITE BLOOD COUNT 5.8 x10^3/uL (4.8-10.8)
[2024-01-23 05:40] LABS: ABNORMAL LYMPHS % (MANUAL) 0 %
[2024-01-23 05:53] LABS: ALBUMIN/GLOBULIN RATIO 1.4 (1.0-2.2); BILIRUBIN,TOTAL 0.5 mg/dL (0.2-1.0); CREATININE 2.8 mg/dL (0.6-1.3); MAGNESIUM 1.8 mg/dL (1.7-2.3); POTASSIUM 4.5 mmol/L (3.5-4.5); TOTAL PROTEIN 5.2 g/dL (6.4-8.9)
[2024-01-23 05:56] LABS: PROCALCITONIN 0.15 ng/mL (<0.5)
[2024-01-23 06:05] LABS: TROPONIN I HIGH SENSITIVITY 62.5 ng/L (2.3-19.7)
[2024-01-23 06:09] LABS: BAND NEUTROPHILS % (MANUAL) 9 %; EOSINOPHILS # (MANUAL) 0.1 10^3/uL (0-0.7); LYMPHOCYTES # (MANUAL) 0.8 10^3/uL (1.5-3.5); LYMPHOCYTES % (MANUAL) 13 %; METAMYELOCYTES % (MANUAL) 1 %; MONOCYTES # (MANUAL) 0.1 10^3/uL (0.0-1.0); MYELOCYTES % (MANUAL) 1 %; NEUTROPHILS # (MANUAL) 4.8 10^3/uL (1.5-6.6)
[2024-01-23 06:10] LABS: DIFFERENTIAL COMMENT MANUAL DIFFERENTIAL; PLATELET ESTIMATE, MANUAL DECREASED (<130,000) (NORMAL)
[2024-01-23] MEDS: IPRATROPIUM/ALBUTEROL 3 ML NEB INH SCH (06:13)
[2024-01-23] MEDS ORDERED: IPRATROPIUM/ALBUTEROL 3 ML NEB INH PRN (08:56)
[2024-01-23] MEDS: METOPROLOL SUCCINATE 50 MG TABLET PO SCH (08:58)
[2024-01-23] MEDS: ASCORBIC ACID 500 MG TABLET PO SCH (08:58)
[2024-01-23] MEDS: guaiFENesin 600 MG TABLET PO SCH (08:58)
[2024-01-23] MEDS: FUROSEMIDE 40 MG/4 ML VIAL IVP SCH (08:58)
[2024-01-23] MEDS: DOXAZOSIN 1 MG TABLET PO SCH (08:58)
[2024-01-23] MEDS: ATORVASTATIN 10 MG TABLET PO SCH (08:59)
[2024-01-23] MEDS: SACCHAROMYCES BOULARDII 250 MG CAPSULE PO SCH (08:59)
[2024-01-23] MEDS: SODIUM CHLORIDE FLUSH 0.9% 10 ML SYRINGE IVP SCH (08:59)
[2024-01-23] MEDS: allopurinoL 100 MG TABLET PO SCH (08:59)
--- NOTE | 2024-01-23 11:35 | PHARMACY PROGRESS NOTE ---
- Best Possible Medication History Admit Date and Time: 01/23/24 0200 Processed by: Pharmacy Medication History completed: Yes Patient Interview: Completed Secondary Source(s): Written medication list, Prescription bottles, Spouse/Significant other, Insurance records (PT PROVIDED HOME MED LIST WITH SPOUSE PRESENT, SURESCRIPTS RECORDS REVIEWED, PT INTERVIEW) As the person ultimately responsible for medication therapy, providers are able to order a medication from an existing home medication list in [facility] via the "Reconcile Routine" prior to Confirmation of that medication by it technical support specialist. Such practice is discouraged except when the physician, in their clinical judgment, deems that a medical need exists for a medication without regard to previous use.
--- NOTE | 2024-01-23 13:49 | PROVIDER PROGRESS NOTE ---
Subjective - Prog Note Date Prog Note Date: 01/23/24 Prog Note Time: 13:46 - Subjective Subjective: Mr. Gillespie is an 83 male with myelofibrosis, atrial fibrillation, and CHF who presents to the ED on 01/21 with shortness of breath. He was unable to provide much information on his recent symptoms in the ED, often returning to HF treatment and complications that occurred several months ago. In late spring his lasix dose was temporarily decreased from 20 mg QD to 10 mg QD and he experienced worsening HF symptoms before increasing it back to 20 mg again. He was treated in the ED for HF on 12/20. He denied any pain upon admission and was not SOB while on O2 nc at admission. EMR noted that patient was recently diagnosed with pneumonia 2wks ago and was treated with outpatient abx Augmentin and Azithromycin. He presented to PCP office today and was noted to be hypoxemic and then sent into the ED for evaluation. Here, patient was noted for to hypoxemic 80% while on room air. Initial CXR citing possible pulm abscess. CT chest was done and no pulm abscess, only pleural effusion likely stemming from the PNA. Upon assessment, he is mildy short of breath on RA with an O2 sat of 90%. His shortness of breath is about the same as it was yesterday. He has a bothersome persistent cough and speaks in 4-6 word sentences. He has chest pain with cou ghing, no persistent chest discomfort and no other pain. He denies headache, abdominal pain, nausea, vomiting, diarrhea, constipation, or dysuria. He prefers to sit upright and is ambulatory without assistance to the restroom as needed. We discussed his wishes regarding resuscitation and he would like to be a DNR/DNI but would otherwise like treatment. He does not currently want artificial nutrition. We will have an advanced care discussion with his later today as he is approaching the end of life. Current Medications - Current Medications Current Medications: Active Medications Generic Name Dose Route Start Last Admin Trade Name Freq PRN Reason Stop Dose Admin Acetaminophen 650 mg 01/23/24 02:00 Acetaminophen 325 Mg Tablet PO Q4HR PRN Pain 1 to 4, or Fever Albuterol/Ipratropium 3 ml 01/23/24 08:56 Ipratropium/Albuterol 3 Ml Neb INH Q4HR PRN Wheezing Allopurinol 100 mg 01/23/24 09:00 01/23/24 08:59 Allopurinol 100 Mg Tablet PO 100 mg DAILY EFFIE Administration Ascorbic Acid 500 mg 01/23/24 09:00 01/23/24 08:58 Ascorbic Acid 500 Mg Tablet PO 500 mg DAILY EFFIE Administration Atorvastatin Calcium 20 mg 01/23/24 09:00 01/23/24 08:59 Atorvastatin 10 Mg Tablet PO 20 mg DAILY EFFIE Administration Doxazosin Mesylate 4 mg 01/23/24 09:00 01/23/24 08:58 Doxazosin 1 Mg Tablet PO 4 mg DAILY EFFIE Administration Furosemide 20 mg 01/23/24 09:00 01/23/24 08:58 Furosemide 40 Mg/4 Ml Vial IVP 20 mg DAILY EFFIE Administration Guaifenesin 600 mg 01/23/24 09:00 01/23/24 08:58 Guaifenesin 600 Mg Tablet PO 600 mg BID EFFIE Administration Ceftriaxone Sodium 2 gm/ 100 mls @ 200 mls/hr 01/23/24 02:10 01/23/24 08:57 Sodium Chloride IV 200 mls/hr DAILY EFFIE Administration Doxycycline Hyclate 100 mg/ 100 mls @ 100 mls/hr 01/23/24 02:10 01/23/24 0 7:06 Sodium Chloride IV Infused Q12H [facility] Infusion Vancomycin HCl 1.5 gm/ Sodium 500 mls @ 250 mls/hr 01/24/24 22:30 Chloride IV Q48H EFFIE Metoprolol Succinate 50 mg 01/23/24 09:00 01/23/24 08:58 Metoprolol Succinate 50 Mg Tablet PO 50 mg DAILY EFFIE Administration Ondansetron HCl 4 mg 01/23/24 02:00 Ondansetron 4 Mg/2 Ml Vial IVP Q6HR PRN Nausea / Vomiting Saccharomyces Boulardii 250 mg 01/23/24 08:00 01/23/24 08:59 Saccharomyces Boulardii 250 Mg Capsule PO 250 mg BIDWM EFFIE Administration Sodium Chloride 10 ml 01/23/24 02:00 Sodium Chloride Flush 0.9% 10 Ml Syringe IVP PRN PRN NEEDED PER PROVIDER ORDERS Sodium Chloride 10 ml 01/23/24 09:00 01/23/24 08:59 Sodium Chloride Flush 0.9% 10 Ml Syringe IVP 10 ml 0100,0900,1700 EFFIE Administration Doxazosin [Cardura] 4 mg PO QPM 01/12/15 Furosemide 20 mg PO DAILY 12/04/17 Metoprolol Succinate [Toprol Xl] 75 mg PO DAILY 01/04/23 allopurinoL [Zyloprim] 100 mg PO DAILY 01/04/23 danazoL [Danazol] 200 mg PO BID 11/25/23 Ruxolitinib Phosphate [Jakafi] 20 mg PO BID 01/11/24 Ascorbic Acid [Vitamin C] 1 tab PO DAILY 01/23/24 Atorvastatin [Lipitor] 1 tab PO QPM 01/23/24 Objective - Vital Signs/Intake & Output Reviewed Vital Signs: Yes Vital Signs: Vital Signs x48h Temp Pulse Pulse Resp BP Pulse Ox O2 Flow Rate 01/23/24 08:00 36.7 C 75 20 156/86 H 95 01/23/24 07:32 84 20 01/23/24 07:31 95 01/23/24 06:50 22 88 L 01/23/24 06:05 2 Intake & Output: Intake & Output 01/20/24 01/21/24 01/22/24 01/23/24 23:59 23:59 23:59 23:59 Intake Total 100 950 Output Total 1301 Balance 100 -351 - Objective General Appearance: positive: Alert, Mild distress (Respiatory distress), Other (83 y/o male, esting upon arrival, roused to voice and conversant) Eyes Bilateral: positive: PERRL Neck: positive: Trachea midline Respiratory: positive: Chest non-tender, Wheezes (Light expiratory wheezes bilateral upper gurrola), Rales (Bilateral bases through middle gurrola), Other (Suprasternal retractions with mild accessory muscel use). negative: No respiratory distress (Mild respiratory distress, speaking 4-6 word sentences), Rhonchi Cardiovascular: positive: No murmur, No gallop, Irregularly irregular. negative: Tachycardia Peripheral Pulses: 2+ Radial (R), 2+ Radial (L) Abdomen: positive: Non-tender, Nml bowel sounds. negative: No distention (Distended and firm), Guarding, Rebound Back: positive: Nml inspection Skin: positive: No rash, Warm, Dry, Pallor Extremities: positive: Non-tender (4+ pitting pedal edema bilateral), Pedal edema Neurologic/Psychiatric: positive: Oriented x3, CN's nml (2-12), Motor nml, Sensation nml, Mood/affect nml - Lab Results Fish Bones: 01/23/24 05:23 01/23/24 05:23 Other Labs: Lab Results x24hrs 01/23/24 01/23/24 01/23/24 Range/Units 12:15 05:23 05:23 WBC (4.8-10.8) x10^3/uL RBC (4.70-6.10) 10^6/uL Hgb (14.0-18.0) g/dL Hct (42.0-52.0) % MCV (80.0-94.0) fL MCH (27.0-31.0) pg MCHC (32.0-36.0) g/dL RDW (12.0-15.0) % Plt Count (130-450) 10^3/uL MPV (7.4-11.4) fL Neut # (Auto) Lymph # (Auto) Barren # (Auto) Eos # (Auto) Baso # (Auto) Absolute Nucleated RBC Total Counted Band Neuts % (Manual) (0 - 10) % Abnorm Lymph % (Manual) % Metamyelocytes % ( - 0) % Myelocytes % ( - 0) % Nucleated RBC % Neutrophils # (Manual) (1.5-6.6) 10^3/uL Lymphocytes # (Manual) (1.5-3.5) 10^3/uL Monocytes # (Manual) (0.0-1.0) 10^3/uL Eosinophils # (Manual) (0-0.7) 10^3/uL Basophils # (Manual) (0-0.1) 10^3/uL Differential Comment Platelet Estimate (NORMAL) Platelet Morphology (NORMAL) RBC Morph Micro Appear (NORMAL) PT (9.9-12.6) secs INR (0.8-1.2) Sodium (135-145) mmol/L Potassium (3.5-4.5) mmol/L Chloride (101-111) mmol/L Carbon Dioxide (21-32) mmol/L Anion Gap (6-13) BUN (6-20) mg/dL Creatinine (0.6-1.3) mg/dL Estimated GFR (MDRD) (>89) Glucose (74-104) mg/dL Calcium (8.5-10.3) mg/dL Phosphorus (2.5-5.0) mg/dL Magnesium (1.7-2.3) mg/dL Total Bilirubin (0.2-1.0) mg/dL AST (10-42) IU/L ALT (10-60) IU/L Alkaline Phosphatase (42-121) IU/L Troponin I High Sens 62.5 H* (2.3-19.7) ng/L B-Natriuretic Peptide 2054 H (5-100) pg/mL Total Protein (6.4-8.9) g/dL Albumin (3.2-5.5) g/dL Globulin (2.1-4.2) g/dL Albumin/Globulin Ratio (1.0-2.2) Procalcitonin Immunoas 0.15 (<0.5) ng/mL Blood Type A POSITIVE Antibody Screen NEGATIVE Crossmatch IS Only See Detail 01/23/24 01/23/24 01/22/24 Range/Units 05:23 05:23 22:22 WBC 5.8 (4.8-10.8) x10^3/uL RBC 1.95 L (4.70-6.10) 10^6/uL Hgb 7.1 L (14.0-18.0) g/dL Hct 21.8 L (42.0-52.0) % MCV 111.8 H (80.0-94.0) fL MCH 36.4 H (27.0-31.0) pg MCHC 32.6 (32.0-36.0) g/dL RDW 23.2 H (12.0-15.0) % Plt Count 117 L (130-450) 10^3/uL MPV 9.9 (7.4-11.4) fL Neut # (Auto) Not Reportable Lymph # (Auto) Not Reportable Barren # (Auto) Not Reportable Eos # (Auto) Not Reportable Baso # (Auto) Not Reportable Absolute Nucleated RBC Not Reportable Total Counted 100 Band Neuts % (Manual) 9 (0 - 10) % Abnorm Lymph % (Manual) 0 % Metamyelocytes % 1 H ( - 0) % Myelocytes % 1 H ( - 0) % Nucleated RBC % Not Reportable Neutrophils # (Manual) 4.8 (1.5-6.6) 10^3/uL Lymphocytes # (Manual) 0.8 L (1.5-3.5) 10^3/uL Monocytes # (Manual) 0.1 (0.0-1.0) 10^3/uL Eosinophils # (Manual) 0.1 (0-0.7) 10^3/uL Basophils # (Manual) 0.0 (0-0.1) 10^3/uL Differential Comment MANUAL DIFFERENTIAL Platelet Estimate DECREASED (<130,000) (NORMAL) Platelet Morphology (NORMAL) RBC Morph Micro Appear 1+ TEARDROP CELLS (NORMAL) PT (9.9-12.6) secs INR (0.8-1.2) Sodium 133 L (135-145) mmol/L Potassium 4.5 (3.5-4.5) mmol/L Chloride 105 (101-111) mmol/L Carbon Dioxide 21 (21-32) mmol/L Anion Gap 7.0 (6-13) BUN 57 H (6-20) mg/dL Creatinine 2.8 H (0.6-1.3) mg/dL Estimated GFR (MDRD) 22 L (>89) Glucose 96 (74-104) mg/dL Calcium 8.0 L (8.5-10.3) mg/dL Phosphorus 3.0 (2.5-5.0) mg/dL Magnesium 1.8 (1.7-2.3) mg/dL Total Bilirubin 0.5 (0.2-1.0) mg/dL AST 27 (10-42) IU/L ALT 40 (10-60) IU/L Alkaline Phosphatase 59 (42-121) IU/L Troponin I High Sens 63.8 H* (2.3-19.7) ng/L B-Natriuretic Peptide (5-100) pg/mL Total Protein 5.2 L (6.4-8.9) g/dL Albumin 3.0 L (3.2-5.5) g/dL Globulin 2.2 (2.1-4.2) g/dL Albumin/Globulin Ratio 1.4 (1.0-2.2) Procalcitonin Immunoas (<0.5) ng/mL Blood Type Antibody Screen Crossmatch IS Only 01/22/24 01/22/24 01/22/24 Range/Units 20:13 20:13 20:13 WBC 7.5 (4.8-10.8) x10^3/uL RBC 2.08 L (4.70-6.10) 10^6/uL Hgb 7.4 L (14.0-18.0) g/dL Hct 23.2 L (42.0-52.0) % MCV 111.5 H (80.0-94.0) fL MCH 35.6 H (27.0-31.0) pg MCHC 31.9 L (32.0-36.0) g/dL RDW 23.1 H (12.0-15.0) % Plt Count 154 (130-450) 10^3/uL MPV 10.8 (7.4-11.4) fL Neut # (Auto) Not Reportable Lymph # (Auto) Not Reportable Barren # (Auto) Not Reportable Eos # (Auto) Not Reportable Baso # (Auto) Not Reportable Absolute Nucleated RBC Not Reportable Total Counted 100 Band Neuts % (Manual) 3 (0 - 10) % Abnorm Lymph % (Manual) 0 % Metamyelocytes % 1 H ( - 0) % Myelocytes % ( - 0) % Nucleated RBC % Not Reportable Neutrophils # (Manual) 6.8 H (1.5-6.6) 10^3/uL Lymphocytes # (Manual) 0.5 L (1.5-3.5) 10^3/uL Monocytes # (Manual) 0.2 (0.0-1.0) 10^3/uL Eosinophils # (Manual) 0.0 (0-0.7) 10^3/uL Basophils # (Manual) 0.0 (0-0.1) 10^3/uL Differential Comment MANUAL DIFFERENTIAL Platelet Estimate NORMAL (130-450,000) (NORMAL) Platelet Morphology NORMAL APPEARANCE (NORMAL) RBC Morph Micro Appear 1+ SCHISTOCYTES (NORMAL) PT 13.3 H (9.9-12.6) secs INR 1.2 (0.8-1.2) Sodium 137 (135-145) mmol/L Potassium 4.4 (3.5-4.5) mmol/L Chloride 108 (101-111) mmol/L Carbon Dioxide 22 (21-32) mmol/L Anion Gap 7.0 (6-13) BUN 58 H (6-20) mg/dL Creatinine 2.9 H (0.6-1.3) mg/dL Estimated GFR (MDRD) 21 L (>89) Glucose 110 H (74-104) mg/dL Calcium 7.8 L (8.5-10.3) mg/dL Phosphorus (2.5-5.0) mg/dL Magnesium 1.8 (1.7-2.3) mg/dL Total Bilirubin 0.5 (0.2-1.0) mg/dL AST 33 (10-42) IU/L ALT 46 (10-60) IU/L Alkaline Phosphatase 65 (42-121) IU/L Troponin I High Sens 67.6 H* (2.3-19.7) ng/L B-Natriuretic Peptide (5-100) pg/mL Total Protein 5.5 L (6.4-8.9) g/dL Albumin 3.2 (3.2-5.5) g/dL Globulin 2.3 (2.1-4.2) g/dL Albumin/Globulin Ratio 1.4 (1.0-2.2) Procalcitonin Immunoas (<0.5) ng/mL Blood Type Antibody Screen Crossmatch IS Only ABX Reporting Has patient been on IV antibiotics over the past 48 hours?: Yes Sepsis Event Note (H) - Evaluation Current Stage of Sepsis: Ruled out Assessment/Plan - Problem List (1) Acute hypoxemic respiratory failure Impression: Presented to the ED with shortness of breath, tachypnia and O2 sat of 92%. Symptoms had been increasing over the past week, with abdominal distention and worsening cough over the past 10 days. He reports fever/chills and chest pain with coughing. He was treated for pneumonia in the ED on 01/11/24. He has a persistent non-productive cough and prefers to sit upright. His respiratory failure is likely due to pneumonia with underlying HF and progressive fluid overload. He is being treated with antibiotics, lasix, with 1,500 fluid restriction. His O2 sat was 90% on RA upon assessment, speaking 4-6 word sentences with mild respiratory distress. The goal is to keep his O2 sats above 92%.. (2) Pneumonia Impression: He reports fever/chills and increased dyspnea over the past 10 days with a peristent non-productive cough. He has rales bilateral bases and middle gurrola with light expiratory wheezing in the upper gurrola. He was recently treated fro pneumonia on 01/11/24 in the Ed and completed a course of PO abx outpatient. Chest CT shows moderate to severe bilateral pneumonia with small adjacent pleural effusions. He has been started on ceftriaxone and doxycycline in the ED and these will be continued during his admission. He is also recieving duonebs q 4 hrs as needed. He reports disrupted sleep due to cough and shortness of breath. I have placed an order for roxanol 10 mg PO q 4 hrs PRN to help with the cough and dyspnia. Qualifiers: Pneumonia type: due to unspecified organism Laterality: bilateral Lung location: unspecified part of lung Qualified Code(s): J18.9 - Pneumonia, unspecified organism (3) Congestive heart failure Impression: He presents with a hx of HF with persistent bilateral lower extremity edema for >1 yr. He reports increasing exertional dyspnea and orthopnia with progressive abdominal distention over the past several months with a notable increase the last 10 days. His BNP is 2053 and he has stable hypertropinemia consistent with demand ischemia. I have also ordered an ECHO as the most current ECHO on record is from 2018. His Cardiology office was contacted and the automation machine builder embroidery assistant stated an ECHO in 06/2023 showed an EF of 35-40%. He is on 20 mg lasix IV daily with a 1,500 cc fluid restriction. I will increase his lasix to 20 mg IV BID. I will continue monitoring I/O's and daily weights. His chronic HF is likely contributing to his respiratory failure. (4) Demand ischemia Impression: He has elevated troponins between 67.6 to 62.5 consistent with demand type 2 ischemia. He has chest pain with coughing, likely pleuritic in nature, and denies any anginal symptoms. He will remain on tele and we will treat his pneumonia and HF to reduce cardiac demand. (5) Myelofibrosis Impression: Myelofibrosis diagnosed 06/2020, managed by outpatient heme and he receives blood transfusions every 2 weeks. His Hbg is 7.1 today and a unit of PRBCs is ordered. He is on Jakafi at home. I will continue to monitor Hbg and CBC daily during admission. (6) CKD stage 4 secondary to hypertension Impression: He has stable CKD stage 4. I will watch for fluid overload, monitor I&O's, renally dose medications as appropriate and avoid nephrotoxins. I will follow electrolytes and kidney function daily. (7) Atrial fibrillation and flutter Impression: He is currently rate controlled. I will continue his regular dose of metoprolol. He is not anticoagulated. He will have continue tele monitoring. (8) Prostatic hypertrophy, benign, with obstruction Impression: Continue home doxazosin. Bladder scan and straight cath as needed.
[2024-01-23] MEDS ORDERED: SODIUM CHLORIDE 0.9% MINIBAG 100 ML IV ONE (14:03)
[2024-01-23] MEDS ORDERED: MORPHINE SOL 10 MG/0.5 ML ORAL SYRINGE PO PRN (15:50)
--- NOTE | 2024-01-23 16:10 | ADVANCE CARE PLANNING NOTE ---
Advance Care Planning - Planning Encounter Date: 01/23/24 Time: 16:00 Purpose: establish code status and goals of care Parties in Attendance: , acute care RN student, patient, hospitalist Decisional Capacity of the Patient: Alert, oriented to person, place, time and situation. Very fatigued. Occasionally gets confused about dates - Encounter Subjective/Patient's Story: born in [place] but smiles and tells me that he has been all over the [facility]. 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 Does not like being employed by anyone. 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 But he has been all over the [facility], [place]. Likes to climb mountains. Had done [employer] and [employer]. Loves [place] rafting. Fishing. Loves taking his four-wheel drive truck to hit the road and explore. He has been twice. His second smiles and states that she is not nearly as adventurous him as he is. Where he is he wants to do white water rafting, she likes to kayak on a very pleasant flat [place]. So there are times that he often did his own thing. He has a shop that is 125 feet behind his house. For close to a year he is having to use his riding branch store manager as his "Steed" to get from the house to the shop because he cannot walk. Severe dyspnea on exertion and fatigue. But he was still able to do the lawn 2 weeks ago with the riding branch store manager. He is still able to dress himself and feed himself. His shares with us that sometimes he needs a little help but he is "hard headed" and refuses to accept help. His main misery is not being able to sleep for several weeks now. He is short of breath at less than 45 degrees. Cannot lay flat. Things seem to have really deteriorated over the last 3 weeks when his Lasix was decreased from 20 twice daily to 20 daily. I explained to him that most likely that was because his creatinine is rising. You have to have enough forward flow in your kidneys so that you do not going to kidney failure. But at the same time we are diuresing and thereby reducing flow from congestive heart failure. He is constantly exhausted, and constantly dyspneic. Even at rest. He has a constant dry cough with a tickle in his throat. he has been living with Myelofibrosis for several years now. He is stating that he thinks he is failing. He can feel himself deteriorating little by little. states that has been very acute over the last 3 weeks. I began my conversation with him this morning where he told me he wanted to be DO NOT RESUSCITATE. However he had not really had a discussion with his about goals of care. I delayed the conversation till this afternoon, and she readily admits that she finds this conversation very difficult. "He is my hero and I want him around forever". I relayed his wishes to be a DO NOT RESUSCITATE. She says that this is very difficult to hear but she will respect his decisions. He does indicate that she will be his DURABLE POWER OF CROZE CUTTER. That she will make decisions for him when he cannot speak. But beyond DO NOT RESUSCITATE they have really not talked about his eventual deterioration and expected . She tells me that she has had both parents in the hospital. It was very traumatic. They were not easy deaths. And she cannot bear the idea that her would have that type of . He tells me that he does not want to in agony. He does not want to be uncomfortable. He does not know where he wants to . He has not discussed it with their mutual 4 children. Whether he wants to in the hospital, at home, or diet a nursing home facility. He does not even know if he is ready to discuss hospice yet. Objective/Medical Story: 83M c myelofibrosis, atrial fibrillation, and CHF who presents to the ED with report of being hypoxic at PCP's office. It is 2am and patient is not a good historian. Patient rambled and unable to provide much needed insight into his presentation. Patient delved into his CHF couple of months ago and back pain for past 6 months but was not able to provide needed details about his pneumonia. He states currently no pain. He feels better after the abx and no SOB while on NC. He is getting a blood transfusion about every 2 weeks now. This has been ongoing for several months. EMR noted that patient was recently seen for shortness of breath. It was accompanied by the fact that he had his Lasix reduced. He was diuresed with intravenous Lasix and sent home. He then returned because of continued s hortness of breath and was diagnosed with pneumonia 2wks ago and was treated with outpatient abx Augmentin and Azithromycin. He presented to PCP office today and was noted to be hypoxemic and then sent into the ED for evaluation. Here, patient was noted for to hypoxemic 80% while on room air. Initial CXR citing possible pulm abscess and patient was planned for transfer. Meanwhile, patient underwent CT chest and was noted for no pulm abscess and only pleural effusion stemming from the PNA. ED staff reconfirmed this findings with oncall radiologist. Primary care provider is Dr. Bran Dominguez. That is who he saw on the day of admission. His inspector and adjuster golf club head is Romulo Guadalupe MD with [facility]. His oncologist is Carlos MD with [facility]. However [place] business decisions on the part of [facility]. And there is a new oncologist being hired by the hospital. He thinks he may be having to switch his care over to the new oncologist because [place] - Past Medical History Cardiovascular: reports: Hypertension, Coronary artery disease, Atrial flutter. chronic systolic heart failure. Cardiology office contacted and they report an ejection fraction of 35 to 40%. Endocrine/Autoimmune: GI: reports: GERD : reports: Renal insuffiency Creatinine as high as 3.2. Musculoskeletal: reports: Osteoarthritis, Gout MRSA Hx?: No - Past Surgical History General: reports: Hiatal hernia repair, Colonoscopy Ortho: reports: Shoulder arthroplasty Cardiovascular: reports: CABG The patient is currently being transfused 1 unit of blood. Has significant orthopnea at 45 to 50 degrees. 1-2+ edema. Although he is being treated for pneumonia, I feel that most of his medical problems right now are congestive heart failure and fluid overload. But we have to be careful in the face of a creatinine of 2.8. Goals of Care: His main fear is being in pain and uncomfortable. I explained to him that we would do the best we could of making sure that he has pain medicine, fever medicine, nausea medicine, and anxiety medicine to make him comfortable. In the meantime he is not comfort measures. Will continue with treatment such as blood transfusions, antibiotics, IV fluids, diuresis. But he is very clear that he d oes not want chest compression, intubation, tube feedings, or dialysis. He wants to remain as independent as possible for as long as possible. He hates the idea that his would have to help him dress or feed him. Plan: 1. POLST form filled out today. 2. I have asked he and his to do some homework. When he gets home, and the kids are all expected to visit in the next couple of weeks, sit down and talk to them. His really does not want to participate in the conversation and I reassured her that that is okay. She could just be in the room and l isten. And that, between he and his children, maybe he could plan out where he thinks he would want toward the end. Right now he is still currently enjoying riding his lawnmower. Doing light weeding. Being in his shop that has a gym, motorcycles, etc. Only he can decide what life would be like if he can no longer do anything that he likes to do. 3. I will reach out to his oncologist tomorrow to ask what the prognosis is. The patient states that he has been doing treatment all along. He has never really had advance care planning goals discussed. Nor has he really asked what his prognosis is. Code Status: Do Not Attempt Resuscitation Time spent on advance care plannin minutes
[2024-01-23] MEDS: SODIUM CHLORIDE FLUSH 0.9% 10 ML SYRINGE IVP PRN (16:29)
[2024-01-23] MEDS: FUROSEMIDE 20 MG/2 ML VIAL IVP SCH (16:29)
[2024-01-24] MEDS: ACETAMINOPHEN 325 MG TABLET PO PRN (00:09)
[2024-01-24 05:33] LABS: BASOPHILS % (AUTO) 0.4 %; EOSINOPHILS % (AUTO) 0.2 %; HCT - HEMATOCRIT 21.7 % (42.0-52.0); HGB - HEMOGLOBIN 7.2 g/dL (14.0-18.0); LYMPHOCYTES % (AUTO) 5.6 %; MEAN CORPUSCULAR HEMOGLOBIN 35.6 pg (27.0-31.0); MEAN CORPUSCULAR HGB CONC 33.2 g/dL (32.0-36.0); MEAN CORPUSCULAR VOLUME 107.4 fL (80.0-94.0); MEAN PLATELET VOLUME 10.9 fL (7.4-11.4); MONOCYTES % (AUTO) 3.2 %; NEUTROPHILS % (AUTO) 83.5 %; PLT - PLATELET COUNT 109 10^3/uL (130-450); RED BLOOD COUNT 2.02 10^6/uL (4.70-6.10); RED CELL DISTRIBUTION WIDTH 25.2 % (12.0-15.0); WHITE BLOOD COUNT 4.7 x10^3/uL (4.8-10.8)
[2024-01-24 05:45] LABS: CALCIUM 7.9 mg/dL (8.5-10.3); CREATININE 2.5 mg/dL (0.6-1.3); POTASSIUM 4.1 mmol/L (3.5-4.5)
[2024-01-24 05:46] LABS: ABNORMAL LYMPHS % (MANUAL) 0 %
[2024-01-24 06:30] LABS: BAND NEUTROPHILS % (MANUAL) 7 %; BASOPHILS % (MANUAL) 1 %; LYMPHOCYTES # (MANUAL) 0.3 10^3/uL (1.5-3.5); LYMPHOCYTES % (MANUAL) 6 %; METAMYELOCYTES % (MANUAL) 1 %; MONOCYTES # (MANUAL) 0.1 10^3/uL (0.0-1.0); MYELOCYTES % (MANUAL) 1 %; NEUTROPHILS # (MANUAL) 4.1 10^3/uL (1.5-6.6)
[2024-01-24 06:32] LABS: DIFFERENTIAL COMMENT MANUAL DIFFERENTIAL; PLATELET ESTIMATE, MANUAL DECREASED (<130,000) (NORMAL)
--- NOTE | 2024-01-24 13:47 | PROVIDER PROGRESS NOTE ---
Subjective - Prog Note Date Prog Note Date: 01/24/24 Prog Note Time: 13:25 - Subjective Pt reports feeling: No change Subjective: Severely weakened. Severely fatigued. Cold. No appetite. Short of breath with just rolling over in bed but stable if he is just laying still in bed. I gave him 1 unit of blood yesterday and hemoglobin really did not respond. He is below the 7.5 grams of hgb cutoff that we are supposed to transfuse him to His taper printed circuit layout, Dr. Hua Guadalupe, was not on-call yesterday. Is not in the office till next week. But I did speak to the taper printed circuit layout on-call, Dr. Contreras. She confirms that his ejection fraction is 35 to 40%.I have been diuresing him because they are worried about fluid overload with blood transfusion. Yesterday his intake and output balance was -491 cc. As of this note's dictation he is negative for 150 cc. In spite of that his BNP has come up. He was 2054 yesterday, and is 2629 today. Current Medications - Current Medications Current Medications: Active Medications Acetaminophen (Acetaminophen 325 Mg Tablet) 650 mg PO Q4HR PRN PRN Reason: Pain 1 to 4, or Fever Last Admin: 01/24/24 00:09 Dose: 650 mg Albuterol/Ipratropium (Ipratropium/Albuterol 3 Ml Neb) 3 ml INH Q4HR PRN PRN Reason: Wheezing Allopurinol (Allopurinol 100 Mg Tablet) 100 mg PO DAILY [facility] Last Admin: 01/24/24 10:04 Dose: 100 mg Ascorbic Acid (Ascorbic Acid 500 Mg Tablet) 500 mg PO DAILY [facility] Last Admin: 01/24/24 10:04 Dose: 500 mg Atorvastatin Calcium (Atorvastatin 10 Mg Tablet) 20 mg PO DAILY [facility] Last Admin: 01/24/24 10:04 Dose: 20 mg Doxazosin Mesylate (Doxazosin 1 Mg Tablet) 4 mg PO DAILY [facility] Last Admin: 01/24/24 10:04 Dose: 4 mg Furosemide (Furosemide 20 Mg/2 Ml Vial) 20 mg IVP BIDDIURETIC [facility] Last Admin: 01/24/24 13:33 Dose: 20 mg Guaifenesin (Guaifenesin 600 Mg Tablet) 600 mg PO BID [facility] Last Admin: 01/24/24 10:04 Dose: 600 mg Ceftriaxone Sodium 2 gm/ (Sodium Chloride) 100 mls @ 200 mls/hr IV DAILY [facility] Last Admin: 01/24/24 10:05 Dose: 200 mls/hr Doxycycline Hyclate 100 mg/ (Sodium Chloride) 100 mls @ 100 mls/hr IV Q12H [facility] Last Admin: 01/24/24 13:33 Dose: 100 mls/hr Vancomycin HCl 1.5 gm/ Sodium (Chloride) 500 mls @ 250 mls/hr IV Q48H [facility] Metoprolol Succinate (Metoprolol Succinate 50 Mg Tablet) 50 mg PO DAILY [facility] Last Admin: 01/24/24 10:04 Dose: 50 mg Morphine Sulfate (Morphine Lori 10 Mg/0.5 Ml Oral Syringe) 10 mg PO Q4H PRN PRN Reason: Cough Ondansetron HCl (Ondansetron 4 Mg/2 Ml Vial) 4 mg IVP Q6HR PRN PRN Reason: Nausea / Vomiting Saccharomyces Boulardii (Saccharomyces Boulardii 250 Mg Capsule) 250 mg PO BID [facility] Last Admin: 01/24/24 17:12 Dose: 250 mg Sodium Chloride (Sodium Chloride Flush 0.9% 10 Ml Syringe) 10 ml IVP PRN PRN PRN Reason: NEEDED PER PROVIDER ORDERS Last Admin: 01/24/24 06:33 Dose: 10 ml Sodium Chloride (Sodium Chloride Flush 0.9% 10 Ml Syringe) 10 ml IVP 0100,0900,1700 [facility] Last Admin: 01/24/24 10:05 Dose: 10 ml Doxazosin [Cardura] 4 mg PO QPM 01/12/15 Furosemide 20 mg PO DAILY 12/04/17 Metoprolol Succinate [Toprol Xl] 75 mg PO DAILY 01/04/23 allopurinoL [Zyloprim] 100 mg PO DAILY 01/04/23 danazoL [Danazol] 200 mg PO BID 11/25/23 Ruxolitinib Phosphate [Jakafi] 20 mg PO BID 01/11/24 Ascorbic Acid [Vitamin C] 1 tab PO DAILY 01/23/24 Atorvastatin [Lipitor] 1 tab PO QPM 01/23/24 Objective - Vital Signs/Intake & Output Reviewed Vital Signs: Yes Vital Signs: Vital Signs x48h Temp Pulse Resp BP Pulse Ox 01/24/24 08:15 36.8 C 92 20 97/65 92 Intake & Output: Intake & Output 01/21/24 01/22/24 01/23/24 01/24/24 23:59 23:59 23:59 23:59 Intake Total 100 1910 250 Output Total 2401 500 Balance 100 -491 -250 - Objective General Appearance: positive: Other ( pale, fatigued, eyes closed with our interaction but he does open them to look at me and interact appropriately. Very cold and has to 3 blankets piled on top of him and he grasps them close to his chest and neck.) Eyes Bilateral: positive: PERRL, EOMI ENT: positive: Dry mucous membranes Neck: positive: No JVD. negative: Stiff neck Respiratory: positive: No respiratory distress. negative: Wheezes, Rales, Rhonchi Cardiovascular: positive: Irregularly irregular, Systolic murmur Abdomen: positive: Non-tender, No organomegaly, Nml bowel sounds, No distention Skin: positive: Warm, Dry Extremities: positive: Full ROM, No pedal edema Neurologic/Psychiatric: positive: Oriented x3, CN's nml (2-12), Motor nml (No focal deficits, no tremors, but generalized fatigue and weakness.) - Lab Results Fish Bones: 01/24/24 05:11 01/24/24 05:11 Other Labs: Lab Results x24hrs 01/24/24 01/24/24 01/24/24 Range/Units 05:11 05:11 05:11 WBC 4.7 L (4.8-10.8) x10^3/uL RBC 2.02 L (4.70-6.10) 10^6/uL Hgb 7.2 L (14.0-18.0) g/dL Hct 21.7 L (42.0-52.0) % MCV 107.4 H (80.0-94.0) fL MCH 35.6 H (27.0-31.0) pg MCHC 33.2 (32.0-36.0) g/dL RDW 25.2 H (12.0-15.0) % Plt Count 109 L (130-450) 10^3/uL MPV 10.9 (7.4-11.4) fL Neut # (Auto) Not Reportable Lymph # (Auto) Not Reportable Nelson # (Auto) Not Reportable Eos # (Auto) Not Reportable Baso # (Auto) Not Reportable Absolute Nucleated RBC Not Reportable Total Counted 100 Band Neuts % (Manual) 7 (0 - 10) % Abnorm Lymph % (Manual) 0 % Metamyelocytes % 1 H ( - 0) % Myelocytes % 1 H ( - 0) % Nucleated RBC % Not Reportable Neutrophils # (Manual) 4.1 (1.5-6.6) 10^3/uL Lymphocytes # (Manual) 0.3 L (1.5-3.5) 10^3/uL Monocytes # (Manual) 0.1 (0.0-1.0) 10^3/uL Eosinophils # (Manual) 0.0 (0-0.7) 10^3/uL Basophils # (Manual) 0.0 (0-0.1) 10^3/uL Differential Comment MANUAL DIFFERENTIAL Platelet Estimate DECREASED (<130,000) (NORMAL) RBC Morph Micro Appear 1+ TEARDROP CELLS (NORMAL) Sodium 137 (135-145) mmol/L Potassium 4.1 (3.5-4.5) mmol/L Chloride 107 (101-111) mmol/L Carbon Dioxide 21 (21-32) mmol/L Anion Gap 9.0 (6-13) BUN 53 H (6-20) mg/dL Creatinine 2.5 H (0.6-1.3) mg/dL Estimated GFR (MDRD) 25 L (>89) Glucose 91 (74-104) mg/dL Calcium 7.9 L (8.5-10.3) mg/dL B-Natriuretic Peptide 2629 H (5-100) pg/mL Blood Type Antibody Screen Crossmatch IS Only 01/23/24 Range/Units 12:15 WBC (4.8-10.8) x10^3/uL RBC (4.70-6.10) 10^6/uL Hgb (14.0-18.0) g/dL Hct (42.0-52.0) % MCV (80.0-94.0) fL MCH (27.0-31.0) pg MCHC (32.0-36.0) g/dL RDW (12.0-15.0) % Plt Count (130-450) 10^3/uL MPV (7.4-11.4) fL Neut # (Auto) Lymph # (Auto) Nelson # (Auto) Eos # (Auto) Baso # (Auto) Absolute Nucleated RBC Total Counted Band Neuts % (Manual) (0 - 10) % Abnorm Lymph % (Manual) % Metamyelocytes % ( - 0) % Myelocytes % ( - 0) % Nucleated RBC % Neutrophils # (Manual) (1.5-6.6) 10^3/uL Lymphocytes # (Manual) (1.5-3.5) 10^3/uL Monocytes # (Manual) (0.0-1.0) 10^3/uL Eosinophils # (Manual) (0-0.7) 10^3/uL Basophils # (Manual) (0-0.1) 10^3/uL Differential Comment Platelet Estimate (NORMAL) RBC Morph Micro Appear (NORMAL) Sodium (135-145) mmol/L Potassium (3.5-4.5) mmol/L Chloride (101-111) mmol/L Carbon Dioxide (21-32) mmol/L Anion Gap (6-13) BUN (6-20) mg/dL Creatinine (0.6-1.3) mg/dL Estimated GFR (MDRD) (>89) Glucose (74-104) mg/dL Calcium (8.5-10.3) mg/dL B-Natriuretic Peptide (5-100) pg/mL Blood Type A POSITIVE Antibody Screen NEGATIVE Crossmatch IS Only See Detail ABX Reporting Has patient been on IV antibiotics over the past 48 hours?: Yes Sepsis Event Note (H) - Evaluation Current Stage of Sepsis: Ruled out Assessment/Plan - Problem List (1) Acute hypoxemic respiratory failure Impression: Presented to the ED with shortness of breath, tachypnia and O2 sat of 92%. Symptoms had been increasing over the past week, with abdominal distention and worsening cough over the past 10 days. He reports fever/chills and chest pain with coughing. He was treated for pneumonia in the ED on 01/11/24. He has a persistent non-productive cough and prefers to sit upright. His respiratory failure is likely due to pneumonia with underlying HF and progressive fluid overload. He is being treated with antibiotics, lasix, with 1,500 fluid restriction. His O2 sat was 90% on RA upon assessment, speaking 4-6 word sentences with mild respiratory distress. The goal is to keep his O2 sats above 92%. I am treating for pneumonia as well as congestive heart failure as the cause of his acute hypoxic respiratory failure . O2 sats have been 92 to 95% on room air. As such I would say that his acute hypoxemic respiratory failure has resolved since yesterday. (2) Pneumonia Impression: He reports fever/chills and increased dyspnea over the past 10 days with a peristent non-productive cough. He has rales bilateral bases and middle gurrola with light expiratory wheezing in the upper gurrola. He was recently treated fro pneumonia on 01/11/24 in the Ed and completed a course of PO abx outpatient. Chest CT shows moderate to severe bilateral pneumonia with small adjacent pleural effusions. He has been started on ceftriaxone and doxycycline in the ED and these will be continued during his admission. He is also recieving duonebs q 4 hrs as needed. He reports disrupted sleep due to cough and shortness of breath. I am continuing roxanol 10 mg PO q 4 hrs PRN to help with the cough and dyspnea. blood cultures have been negative, he has not had a fever, white cell count is normal today's day #2 of Rocephin, and day #2 of doxycycline Qualifiers: Pneumonia type: due to unspecified organism Laterality: bilateral Lung location: unspecified part of lung Qualified Code(s): J18.9 - Pneumonia, unspecified organism (3) Congestive heart failure Impression: He presents with a hx of HF with persistent bilateral lower extremity edema for >1 yr. He reports increasing exertional dyspnea and orthopnia with progressive abdominal distention over the past several months with a notable increase the last 10 days. His BNP is 2053 and he has stable hypertropinemia consistent with demand ischemia. I have also ordered an ECHO as the most current ECHO on record is from 2018. His Cardiology office was contacted and the investor relations manager taper printed circuit layout stated an ECHO in 06/2023 showed an EF of 35-40%. I initially ordered 20 mg lasix IV daily with a 1,500 cc fluid restriction. I then increased his lasix to 20 mg IV BID when I felt i may be giving him too much fluid with his transfusions. I will continue monitoring I/O's and daily weights. His chronic HF is likely contributing to his respiratory failure. (4) Demand ischemia Impression: He has elevated troponins between 67.6 to 62.5 consistent with demand type 2 ischemia. He has chest pain with coughing, likely pleuritic in nature, and denies any anginal symptoms. He will remain on tele and we will treat his pneumonia and HF to reduce cardiac demand. 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 His Hbg was 7.1 on admission yesterday and a unit of PRBCs is ordered. He is on Jakafi at home. repeat hemoglobin this morning showed him to still be below the 7.5 g of hemoglobin goal. As such I have ordered another unit of packed cells that is leukocyte reduced and irradiated. We discussed his poor prognosis yesterday. He is needing transfusions more and more. POLST form was filled out today and he wants to be DO NOT RESU SCITATE. He is also wanting a informational visit from hospice for educating himself about his options. 2 of his friends have killed themselves due to cancer; 1 shot himself and the other jumped off [place] bridge. Another friend did best with dignity as dementia became progressive. So the patient really wants to have the options of avoiding as much painful symptoms as possible. He does not necessarily want to be in hospice right now but just wants education. (6) CKD stage 4 secondary to hypertension Impression: He has stable CKD stage 4. I will watch for fluid overload, monitor I&O's, renally dose medications as appropriate and avoid nephrotoxins. I will follow electrolytes and kidney function daily. His creatinine has improved today. (7) Atrial fibrillation and flutter Impression: He is currently rate controlled. I will continue his regular dose of metoprolol. He is not anticoagulated. He will have continue tele monitoring. (8) Prostatic hypertrophy, benign, with obstruction Impression: Continue home doxazosin. Bladder scan and straight cath as needed.
[2024-01-24] MEDS ORDERED: SODIUM CHLORIDE 0.9% 500 ML IV ONE (14:32)
[2024-01-24] MEDS: VANCOMYCIN INJ 1.5 GM in SODIUM CHLORIDE 0.9% 500 ML IV SCH (22:43)
[2024-01-25 05:13] LABS: BASOPHILS % (AUTO) 0.5 %; HCT - HEMATOCRIT 23.1 % (42.0-52.0); HGB - HEMOGLOBIN 7.6 g/dL (14.0-18.0); LYMPHOCYTES % (AUTO) 3.7 %; MEAN CORPUSCULAR HEMOGLOBIN 34.4 pg (27.0-31.0); MEAN CORPUSCULAR HGB CONC 32.9 g/dL (32.0-36.0); MEAN CORPUSCULAR VOLUME 104.5 fL (80.0-94.0); MEAN PLATELET VOLUME 10.6 fL (7.4-11.4); MONOCYTES % (AUTO) 4.7 %; NEUTROPHILS % (AUTO) 83.2 %; PLT - PLATELET COUNT 88 10^3/uL (130-450); RED BLOOD COUNT 2.21 10^6/uL (4.70-6.10); RED CELL DISTRIBUTION WIDTH 25.5 % (12.0-15.0); WHITE BLOOD COUNT 4.1 x10^3/uL (4.8-10.8)
[2024-01-25 05:14] LABS: SLIDE REVIEW? Indicated
[2024-01-25 05:15] LABS: ABNORMAL LYMPHS % (MANUAL) 0 %; BAND NEUTROPHILS % (MANUAL) 0 %
[2024-01-25 05:29] LABS: CREATININE 2.7 mg/dL (0.6-1.3); POTASSIUM 3.9 mmol/L (3.5-4.5)
[2024-01-25 06:30] LABS: LYMPHOCYTES # (MANUAL) 0.1 10^3/uL (1.5-3.5); LYMPHOCYTES % (MANUAL) 3 %; METAMYELOCYTES % (MANUAL) 2 %; MONOCYTES # (MANUAL) 0.1 10^3/uL (0.0-1.0); MYELOCYTES % (MANUAL) 3 %; NEUTROPHILS # (MANUAL) 3.6 10^3/uL (1.5-6.6)
[2024-01-25 06:31] LABS: DIFFERENTIAL COMMENT MANUAL DIFFERENTIAL; PLATELET ESTIMATE, MANUAL DECREASED (<130,000) (NORMAL); PLATELET MORPHOLOGY NORMAL APPEARANCE (NORMAL); WBC MORPHOLOGY (MULTIPLE) NORMAL APPEARANCE (NORMAL)
--- NOTE | 2024-01-25 11:48 | PROVIDER PROGRESS NOTE ---
Subjective - Prog Note Date Prog Note Date: 01/25/24 Prog Note Time: 11:46 - Subjective Pt reports feeling: No change Subjective: Orthopnea, fatigue, easy dyspnea exertion even at rest or with speaking. He is speaking of hospice option versus with dignity option more and more. He called his to come to the hospital 1130 last night to pick him up and take him home because he just is so miserable and he would rather at home. since yesterday afternoon, he is now needing 2 L nasal cannula to stay above 89% room air. 2 L is saturating up to 94%. She opted to come visit him and spent the night with him but did not take him home. They have 4 children. 2 of the 4 children are now at the bedside. 30- minute advance care planning conversation dictated under separate note. Current Medications - Current Medications Current Medications: Active Medications Acetaminophen (Acetaminophen 325 Mg Tablet) 650 mg PO Q4HR PRN PRN Reason: Pain 1 to 4, or Fever Last Admin: 01/24/24 00:09 Dose: 650 mg Albuterol/Ipratropium (Ipratropium/Albuterol 3 Ml Neb) 3 ml INH Q4HR PRN PRN Reason: Wheezing Allopurinol (Allopurinol 100 Mg Tablet) 100 mg PO DAILY [facility] Last Admin: 01/25/24 08:37 Dose: 100 mg Ascorbic Acid (Ascorbic Acid 500 Mg Tablet) 500 mg PO DAILY EFFIE Last Admin: 01/25/24 08:37 Dose: 500 mg Atorvastatin Calcium (Atorvastatin 10 Mg Tablet) 20 mg PO DAILY EFFIE Last Admin: 01/25/24 08:37 Dose: 20 mg Doxazosin Mesylate (Doxazosin 1 Mg Tablet) 4 mg PO DAILY EFFIE Last Admin: 01/25/24 08:36 Dose: 4 mg Furosemide (Furosemide 20 Mg/2 Ml Vial) 20 mg IVP BIDDIURETIC EFFIE Last Admin: 01/25/24 06:21 Dose: 20 mg Guaifenesin (Guaifenesin 600 Mg Tablet) 600 mg PO BID EFFIE Last Admin: 01/25/24 08:37 Dose: 600 mg Ceftriaxone Sodium 2 gm/ (Sodium Chloride) 100 mls @ 200 mls/hr IV DAILY EFFIE Last Infusion: 01/25/24 09:10 Dose: Infused Doxycycline Hyclate 100 mg/ (Sodium Chloride) 100 mls @ 100 mls/hr IV Q12H [facility] Last Infusion: 01/25/24 02:48 Dose: Infused Metoprolol Succinate (Metoprolol Succinate 50 Mg Tablet) 50 mg PO DAILY [facility] Last Admin: 01/25/24 08:37 Dose: Not Given Morphine Sulfate (Morphine Lori 10 Mg/0.5 Ml Oral Syringe) 10 mg PO Q4H PRN PRN Reason: Cough Ondansetron HCl (Ondansetron 4 Mg/2 Ml Vial) 4 mg IVP Q6HR PRN PRN Reason: Nausea / Vomiting Saccharomyces Boulardii (Saccharomyces Boulardii 250 Mg Capsule) 250 mg PO BIDWM [facility] Last Admin: 01/25/24 08:37 Dose: 250 mg Sodium Chloride (Sodium Chloride Flush 0.9% 10 Ml Syringe) 10 ml IVP PRN PRN PRN Reason: NEEDED PER PROVIDER ORDERS Last Admin: 01/25/24 06:21 Dose: 10 ml Sodium Chloride (Sodium Chloride Flush 0.9% 10 Ml Syringe) 10 ml IVP 0100,0900,1700 [facility] Last Admin: 01/25/24 08:37 Dose: 10 ml Doxazosin [Cardura] 4 mg PO QPM 01/12/15 Furosemide 20 mg PO DAILY 12/04/17 Metoprolol Succinate [Toprol Xl] 75 mg PO DAILY 01/04/23 allopurinoL [Zyloprim] 100 mg PO DAILY 01/04/23 danazoL [Danazol] 200 mg PO BID 11/25/23 Ruxolitinib Phosphate [Jakafi] 20 mg PO BID 01/11/24 Ascorbic Acid [Vitamin C] 1 tab PO DAILY 01/23/24 Atorvastatin [Lipitor] 1 tab PO QPM 01/23/24 Objective - Vital Signs/Intake & Output Reviewed Vital Signs: Yes Vital Signs: Vital Signs x48h Temp Pulse Resp BP Pulse Ox O2 Flow Rate 01/25/24 10:56 93/53 L 01/25/24 10:54 37 C 73 18 87/52 L 96 01/25/24 08:00 37 C 80 19 109/58 L 94 2 01/25/24 05:24 36.6 C 79 20 110/62 95 2 Intake & Output: Intake & Output 01/22/24 01/23/24 01/24/24 01/25/24 23:59 23:59 23:59 23:59 Intake Total 100 1910 1110 950 Output Total 2401 1150 700 Balance 100 491 -40 250 - Objective General Appearance: positive: Mild distress (tahcypnea at rest while he speaks to me.), Other (Elderly disheveled gentleman, alert and oriented to person, place, time and situation.) Eyes Bilateral: positive: PERRL, EOMI ENT: positive: Dry mucous membranes ( Mouth open breathing with his tachypnea) Neck: positive: No JVD. negative: Stiff neck Respiratory: positive: Wheezes ( very faint and at the bases), Rales ( worse Distribution than yesterday, diffuse and senior living up his lung gurrola. Very faint.) Cardiovascular: positive: Irregularly irregular ( for distant cardiac tones), Systolic murmur Abdomen: positive: Non-tender, No organomegaly, Nml bowel sounds, No distention Skin: positive: Warm, Dry, Pallor, Other ( spite of his obvious distress he is not clamping down. Extremities are still warm. Nailbeds are quite pale.) Extremities: positive: Full ROM, Pedal edema Neurologic/Psychiatric: positive: Oriented x3, CN's nml (2-12), Motor nml ( No focal deficits but severe generalized weakness. Able to get out of bed to urinate and to sit in a chair. Not eating.) - Lab Results Fish Bones: 01/25/24 04:57 01/25/24 04:57 Other Labs: Lab Results x24hrs 01/25/24 01/25/24 01/25/24 Range/Units 04:57 04:57 04:57 WBC 4.1 L (4.8-10.8) x10^3/uL RBC 2.21 L (4.70-6.10) 10^6/uL Hgb 7.6 L (14.0-18.0) g/dL Hct 23.1 L (42.0-52.0) % MCV 104.5 H (80.0-94.0) fL MCH 34.4 H (27.0-31.0) pg MCHC 32.9 (32.0-36.0) g/dL RDW 25.5 H (12.0-15.0) % Plt Count 88 L (130-450) 10^3/uL MPV 10.6 (7.4-11.4) fL Neut # (Auto) Not Reportable Lymph # (Auto) Not Reportable [place] # (Auto) Not Reportable Eos # (Auto) Not Reportable Baso # (Auto) Not Reportable Absolute Nucleated RBC Not Reportable Total Counted 100 Band Neuts % (Manual) 0 (0 - 10) % Abnorm Lymph % (Manual) 0 % Metamyelocytes % 2 H ( - 0) % Myelocytes % 3 H ( - 0) % Nucleated RBC % Not Reportable Neutrophils # (Manual) 3.6 (1.5-6.6) 10^3/uL Lymphocytes # (Manual) 0.1 L (1.5-3.5) 10^3/uL Monocytes # (Manual) 0.1 (0.0-1.0) 10^3/uL Eosinophils # (Manual) 0.0 (0-0.7) 10^3/uL Basophils # (Manual) 0.0 (0-0.1) 10^3/uL Differential Comment MANUAL DIFFERENTIAL Manual Slide Review Indicated WBC Morphology NORMAL APPEARANCE (NORMAL) Platelet Estimate DECREASED (<130,000) (NORMAL) Platelet Morphology NORMAL APPEARANCE (NORMAL) RBC Morph Micro Appear 1+ ANISOCYTOSIS (NORMAL) Sodium 136 (135-145) mmol/L Potassium 3.9 (3.5-4.5) mmol/L Chloride 108 (101-111) mmol/L Carbon Dioxide 20 L (21-32) mmol/L Anion Gap 8.0 (6-13) BUN 53 H (6-20) mg/dL Creatinine 2.7 H (0.6-1.3) mg/dL Estimated GFR (MDRD) 23 L (>89) Glucose 103 (74-104) mg/dL Calcium 8.0 L (8.5-10.3) mg/dL B-Natriuretic Peptide 2690 H (5-100) pg/mL Blood Type Antibody Screen Crossmatch IS Only 01/23/24 Range/Units 12:15 WBC (4.8-10.8) x10^3/uL RBC (4.70-6.10) 10^6/uL Hgb (14.0-18.0) g/dL Hct (42.0-52.0) % MCV (80.0-94.0) fL MCH (27.0-31.0) pg MCHC (32.0-36.0) g/dL RDW (12.0-15.0) % Plt Count (130-450) 10^3/uL MPV (7.4-11.4) fL Neut # (Auto) Lymph # (Auto) [place] # (Auto) Eos # (Auto) Baso # (Auto) Absolute Nucleated RBC Total Counted Band Neuts % (Manual) (0 - 10) % Abnorm Lymph % (Manual) % Metamyelocytes % ( - 0) % Myelocytes % ( - 0) % Nucleated RBC % Neutrophils # (Manual) (1.5-6.6) 10^3/uL Lymphocytes # (Manual) (1.5-3.5) 10^3/uL Monocytes # (Manual) (0.0-1.0) 10^3/uL Eosinophils # (Manual) (0-0.7) 10^3/uL Basophils # (Manual) (0-0.1) 10^3/uL Differential Comment Manual Slide Review WBC Morphology (NORMAL) Platelet Estimate (NORMAL) Platelet Morphology (NORMAL) RBC Morph Micro Appear (NORMAL) Sodium (135-145) mmol/L Potassium (3.5-4.5) mmol/L Chloride (101-111) mmol/L Carbon Dioxide (21-32) mmol/L Anion Gap (6-13) BUN (6-20) mg/dL Creatinine (0.6-1.3) mg/dL Estimated GFR (MDRD) (>89) Glucose (74-104) mg/dL Calcium (8.5-10.3) mg/dL B-Natriuretic Peptide (5-100) pg/mL Blood Type A POSITIVE Antibody Screen NEGATIVE Crossmatch IS Only See Detail ABX Reporting Has patient been on IV antibiotics over the past 48 hours?: Yes Sepsis Event Note (H) - Evaluation Current Stage of Sepsis: Ruled out Assessment/Plan - Problem List (1) Acute hypoxemic respiratory failure Impression: .Presented to the ED with shortness of breath, tachypnia and O2 sat of 92%. Symptoms had been increasing over the past week, with abdominal distention and worsening cough over the past 10 days. He reports fever/chills and chest pain with coughing. He was treated for pneumonia in the ED on 01/11/24. He has a persistent non-productive cough and prefers to sit upright. His respiratory failure is likely due to pneumonia with underlying HF and progressive fluid overload. He is being treated with antibiotics, lasix, with 1,500 fluid restrict ion. His O2 sat was 90% on RA upon his first assessment, speaking 4-6 word sentences with mild respiratory distress. The goal is to keep his O2 sats above 92%. In the last 24 hours he is dyspneic just laying in bed. Not even speaking. He is now requiring 2 L nasal cannula to keep him above 90%. Yesterday I thought he was improving. But today I feel that he is worsening, not improving. I am treating for pneumonia as well as congestive heart failure as the cause of his acute hypoxic respiratory failure . O2 sats have been 92 to 95% on room air. (2) Pneumonia Impression: He reports fever/chills and increased dyspnea over the past 10 days with a peristent non-productive cough. He has rales bilateral bases and middle gurrola with light expiratory wheezing in the upper gurrola. He was recently treated fro pneumonia on 01/11/24 in the Ed and completed a course of PO abx outpatient. Chest CT on this admission shows moderate to severe bilateral pneumonia with small adjacent pleural effusions. He has been started on ceftriaxone and doxycycline in the ED and these have been continued during his admission. He is also recieving duonebs q 4 hrs as needed. He reports disrupted sleep due to cough and shortness of breath. I started and am continuing roxanol 10 mg PO q 4 hrs PRN to help with the cough and dyspnea. The constant cough is better but the orthopnea is worse. blood cultures have been negative, he has not had a fever, white cell count is normal today's day #3/5 of Rocephin, and day #3/5 of doxycycline Qualifiers: Pneumonia type: due to unspecified organism Laterality: bilateral Lung location: unspecified part of lung Qualified Code(s): J18.9 - Pneumonia, unspecified organism (3) Congestive heart failure Impression: He presents with a hx of HF with persistent bilateral lower extremity edema for >1 yr. He reports increasing exertional dyspnea and orthopnia with progressive abdominal distention over the past several months with a notable increase the last 10 days. His BNP is 2054 and he has stable or flat toponin elevation consistent with demand ischemia. I have also ordered an ECHO as the most current ECHO on record is from 2018. His Cardiology office was contacted and the sound person banding machine operator stated an ECHO in 06/2023 showed an EF of 35-40%. Echocardiogram was done January 22 after one of my orders. Our echoes are sent to [place] and the [facility] banding machine operator read the echo and send the report back to us. While the echo has been done and completed, the report is still not back. On admisison, I initially ordered 20 mg lasix IV daily with a 1,500 cc fluid restriction. I then increased his lasix to 20 mg IV BID when I felt I may be giving him too much fluid with his transfusions. I am monitoring I/O's and daily weights and in spite of a negative fluid balance, he is worse. Today he needs oxygen. Crackles seem to be worse in their distribution. Watching his creatinine with this. I do not want to put him in cardiorenal failure. I will give an extra dose of Lasix especially since I am about to give him another unit of blood. (4) Demand ischemia Impression: He has elevated troponins between 67.6 to 62.5 consistent with demand type 2 ischemia. He has chest pain with coughing, likely pleuritic in nature, and denies any anginal symptoms. He will remain on tele and we will treat his pneumonia and HF to reduce cardiac demand. 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 His Hbg was 7.1 on admission and a unit of PRBCs is ordered>>7.2 Hgb so I ordered a second unit yesterday and Hgb is 7.6 today . Stated oncology goal with last note is to be >7.5. He is on Jakafi at home. I discussed his poor prognosis with him 01/22. He is needing transfusions more and more. POLST form was filled out 01/23 and he wants to be DO NOT RESUSCITATE. He is also wanting a informational visit from hospice for educating himself about his options. They are available to speak to him tomorrow and I have let his 2 daughter that are with him know that. 2 of his friends have killed themselves due to cancer; 1 shot himself and the other jumped off [place] bridge. Another friend did with dignity as dementia became progressive. So the patient really wants to have the options of avoiding as much painful symptoms as possible. He does not necessarily want to be in hospice right now but just wants education. (6) CKD stage 4 secondary to hypertension Impression: He has stable CKD stage 4. I will watch for fluid overload, monitor I&O's, renally dose medications as appropriate and avoid nephrotoxins. I am following electrolytes and kidney function daily. Laboratory Tests 01/22/24 01/23/24 01/24/24 20:13 05:23 05:11 Creatinine 2.9 H 2.8 H 2.5 H 01/25/24 04:57 Creatinine 2.7 H He was improving with my diuresis, but today creatinine came back up again. I explained to the patient that I am needing to improve for for his kidneys but at the same time diurese him and that causes intravascular depletion. It is a balance. I will be giving him more blood today. (7) Atrial fibrillation and flutter Impression: He is currently rate controlled. I will continue his regular dose of metoprolol. He is not anticoagulated. He will have continue tele monitoring. (8) Prostatic hypertrophy, benign, with obstruction Impression: Continue home doxazosin. Bladder scan and straight cath as needed.
[2024-01-26 05:14] LABS: BASOPHILS % (AUTO) 0.4 %; HCT - HEMATOCRIT 22.4 % (42.0-52.0); HGB - HEMOGLOBIN 7.4 g/dL (14.0-18.0); MEAN CORPUSCULAR HEMOGLOBIN 34.4 pg (27.0-31.0); MEAN CORPUSCULAR VOLUME 104.2 fL (80.0-94.0); MONOCYTES % (AUTO) 4.4 %; NEUTROPHILS % (AUTO) 80.5 %; PLT - PLATELET COUNT 83 10^3/uL (130-450); RED BLOOD COUNT 2.15 10^6/uL (4.70-6.10); WHITE BLOOD COUNT 2.7 x10^3/uL (4.8-10.8)
[2024-01-26 05:18] LABS: SLIDE REVIEW? Indicated
[2024-01-26 05:19] LABS: ABNORMAL LYMPHS % (MANUAL) 0 %
[2024-01-26 05:32] LABS: CALCIUM 8.1 mg/dL (8.5-10.3); CREATININE 2.6 mg/dL (0.6-1.3); POTASSIUM 3.7 mmol/L (3.5-4.5)
[2024-01-26 06:05] LABS: BAND NEUTROPHILS % (MANUAL) 8 %; LYMPHOCYTES # (MANUAL) 0.2 10^3/uL (1.5-3.5); LYMPHOCYTES % (MANUAL) 7 %; METAMYELOCYTES % (MANUAL) 2 %; MYELOCYTES % (MANUAL) 2 %; NEUTROPHILS # (MANUAL) 2.4 10^3/uL (1.5-6.6)
[2024-01-26 06:08] LABS: DIFFERENTIAL COMMENT MANUAL DIFFERENTIAL; PLATELET ESTIMATE, MANUAL DECREASED (<130,000) (NORMAL); PLATELET MORPHOLOGY NORMAL APPEARANCE (NORMAL); WBC MORPHOLOGY (MULTIPLE) NORMAL APPEARANCE (NORMAL)
--- NOTE | 2024-01-26 11:28 | Discharge Plan ---
Discharge Plan Problem Reviewed?: Yes Disposition: 50 Hospice/Home DC/Xfer Condition: Poor Prescriptions: LORazepam [Ativan] 0.5 mg PO Q6H PRN #10 tablet PRN Reason: Anxiety Bisacodyl Supp [Dulcolax Supp] 10 mg NV DAILY PRN #3 supp PRN Reason: Constipation Furosemide [Lasix] 20 mg PO BID #60 tablet levoFLOXacin [Levaquin] 750 mg PO QD 13 Days #39 tablet Morphine Sulfate 5 mg PO Q4H PRN #30 ml PRN Reason: Moderate to Severe pain. Senna [Senokot] 8.6 mg PO BID PRN #10 tablet PRN Reason: Constipation Metoprolol Succinate [Toprol Xl] 50 mg PO DAILY #30 tab OLANZapine ODT [Zyprexa Odt] 5 mg TL BID PRN #10 tablet PRN Reason: Nausea / Vomiting Diet: Cardiac Activity Restrictions: Activity as Tolerated Shower Restrictions: No Driving Restrictions: Yes (no driving) Assistance Devices: [facility] Concerns: You have a history of myelofibrosis for several years now and it become transfusion dependent. You are getting a blood transfusion about every 2 weeks. You presented to the emergency room with worsening shortness of breath, more fatigued, more leg swelling, and we found you to have congestive heart failure and severe anemia from myelofibrosis. You have had 2 units of red blood cells transfused. Your hemoglobin is now above 7.5. You have also been diuresed and I have made you urinate quite a bit with intravenous Lasix. In spite of that you continue to be fatigued, short of breath, and significantly disabled from your heart. You have met with hospice for an informational visit. And you are strongly considering with dignity. You have also filled out a form saying you want to be DO NOT RESUSCITATE. The POLST form will be taking home with you and a copy is kept here. You have chosen a hospice team that we will work with you. You would like to go home and then have hospice meet you at your house in the next few days. On the day of discharge one of the blood test that we did on your day of admission became positive. It is a blood culture. It identified a bacteria growing in your bloodstream, most likely coming from your pneumonia. This bacteria is relatively rare and hardly ever causes infection in people unless they are immunocompromised. Such as yourself. So we changed her antibiotics on the day of discharge and you will need to take antibiotics for 10 to 14 days. Plan of Treatment: Hospice will be meeting you at your home in the next few days. Please complete antibiotics for up to 14 days and those have been called into your pharmacy. You have also called in the comfort medications that hospice requires: Morphine drops, Ativan sublingual, nausea medication. You asked us to call that into [facility] and we did. Care Goals: You do not want to be in pain or in severe respiratory distress. You would like to go home and be comfortable at home without returning to the hospital. Assessment: Patient is alert, oriented to person/place/time/situation. No Smoking: If you smoke, Please STOP! Call for help. Follow-up with: Bran Dominguez MD [Primary Care Provider] -
--- NOTE | 2024-01-26 11:31 | DISCHARGE SUMMARY ---
"Discharge Summary Admit Date: 01/23/24 Discharge Date: 01/26/24 Discharging Provider: Jessica Bhagat MD Primary Care Provider: Bran Dominguez MD Code Status: Do Not Attempt Resuscitation Condition at Discharge: Poor - DIAGNOSES Discharge Diagnoses with Status of Each Condition: 1. Acute respiratory failure with hypoxia present on admission and not resolved 2. 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 Acute on chronic systolic congestive heart failure, present on admission 4. 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 Myelofibrosis with immunocompromised status 6. Chronic kidney disease stage IV 7. Chronic atrial fibrillation 8. Benign prostatic hypertrophy with LUTS 9. Elevated troponin - HPI History of Present Illness: 83M c myelofibrosis, atrial fibrillation, and CHF who presents to the ED with report of being hypoxic at PCP's office. It is 2am and patient is not a good historian. Patient rambled and unable to provide much needed insight into his presentation. Patient delved into his CHF couple of months ago and back pain for past 6 months but was not able to provide needed details about his pneumonia. He states currently no pain. He feels better after the abx and no SOB while on NC. EMR noted that patient was recently diagnosed with pneumonia 2wks ago and was treated with outpatient abx Augmentin and Azithromycin. He presented to PCP office today and was noted to be hypoxemic and then sent into the ED for evaluation. Here, patient was noted for to hypoxemic 80% while on room air. Initial CXR citing possible pulm abscess and patient was planned for transfer. Meanwhile, patient underwent CT chest and was noted for no pulm abscess and only pleural effusion stemming from the PNA. ED staff reconfirmed this findings with oncall radiologist. - Past Medical History Cardiovascular: reports: Hypertension, Coronary artery disease, Atrial flutter Endocrine/Autoimmune: reports: Other GI: reports: GERD : reports: Renal insuffiency Musculoskeletal: reports: Osteoarthritis, Gout MRSA Hx?: No - Past Surgical History General: reports: Hiatal hernia repair, Colonoscopy Ortho: reports: Shoulder arthroplasty Cardiovascular: reports: CABG - CONSULTS | PROCEDURES Procedures: 1. Chest x-ray with persistent bilateral opacities that have new bibasilar opa cities and small pleural effusion. This may be from pulmonary edema but this is rapidly progressive since December 17. Persistent rounded opacity in the left midlung. 2. Chest CT has bilateral moderately severe patchy pneumonia with adjacent small bilateral pleural effusions but no evidence of pulmonary abscess seen on chest x-ray. No pneumothorax. No suspicious pulmonary nodules. 3. Blood culture positive for Burkholderia Cepacia Group in 1/2 bottles - HOSPITAL COURSE Hospital Course: In spite of starting an empiric antibiotic therapy for community-acquired pneumonia, as well as treating him for acute on chronic systolic heart failure, the patient did not improve much. He described a gradual progressive dyspnea exertion for many months, but an acute worsening over the 10 days prior to admission. Blood cultures were positive for gram-negative bacteria but were not identified until the day of discharge. He had been on 4 days of Rocephin and 4 days of doxycycline. Once the positive blood cultures were identified as Burkholderia cepacia, I change his antibiotics to Levaquin 750 mg IV push daily. The patient wants to go home. He does not want to be in the hospital anymore. I am comfortable sending him home on Levaquin 750 mg p.o. daily since it has the same bioavailability as IV medication. Hoping that treating with Levaquin will improve some of his respiratory status and give him more comfort. That is gram- negative bacteremia he will need 10 to 14 days of antibiotics. He will need to follow-up with his primary care provider or his oncologist. He had consistently negative fluid status with my use of Lasix 20 mg IV push, occasionally IV push twice daily but he is to continue to have edema. Ortho pnea. Easy fatigability. Dyspnea with speaking to me or dyspnea trying to get up out of bed. Numerous conversations were held with he and his about end-of-life care. He has myelofibrosis that is transfusion dependent and was getting packed cells every 2 weeks. With this admission he had 2 units of blood and I was getting ready to transfuse him third unit of blood when he asked that I not do that. He had come to the conclusion that he was at end-of-life. And wanted to consider his options with regards to de-escalating therapy and focusing more on comfort. But he was not sure if he wanted to transition to full comfort measures yet. He just knew that he did not want to use more blood products because it was a brianne resource that could be used by somebody else. A POLST form was filled out where he is DO NOT RESUSCITATE. He is going to have family conferences to sit down and talk to his kids about what end-of-life would look like for him. He would prefer to be home with caregivers. But he knows that his may be overwhelmed with that. He had an informational visit with Hospice on the day of discharge and decided to go into Hospice with [facility]. And he is also actively seeking information on with dignity. He shared with me that 1 friend jumped [place], another friend shot himself, and another friend did with dignity. All of these were elderly gentleman who would come to the decision that they no longer wanted to be with us due to their illnesses which included dementia or cancer. I strongly encouraged him to avoid jumping off the bridge or shooting himself. He is due to see oncology in the [facility] clinic to get an infusion this coming Saturday (today is Saturday) he thinks he will cancel the infusion. His atrial fibrillation remained in rate controlled while here. Chronic kidney disease remained stable. He says that in the past his creatinine has been above 3. Here he was 2.5-2.9. He has benign prostatic hypertrophy and occasionally needed straight cath. But usually did well with pure wick. - ALLERGIES Allergies/Adverse Reactions: Allergies Allergy/AdvReac Type Severity Reaction Status Date / Time codeine [Codeine] Allergy Intermediate Nausea Verified 01/22/24 20:08 - MEDICATIONS Home Medications: Ambulatory Orders Medication Instructions Recorded Confirmed Doxazosin [Cardura] 4 mg PO QPM 01/12/15 01/23/24 allopurinoL [Zyloprim] 100 mg PO DAILY 01/04/23 01/23/24 danazoL [Danazol] 200 mg PO BID 11/25/23 01/23/24 Ruxolitinib Phosphate [Jakafi] 20 mg PO BID 01/11/24 01/23/24 Ascorbic Acid [Vitamin C] 1 tab PO DAILY 01/23/24 01/23/24 Furosemide [Lasix] 20 mg PO BID #60 tablet 01/26/24 Metoprolol Succinate [Toprol Xl] 50 mg PO DAILY #30 tab 01/26/24 guaiFENesin [Mucinex] 600 mg PO BID tab 01/26/24 levoFLOXacin [Levaquin] 750 mg PO QD 13 Days #39 tablet 01/26/24 - PHYSICAL EXAM AT DISCHARGE General Appearance: positive: Alert, Mild distress (elderly fatigued appearing white male who wore a beanie the entire time due to alopecia) Eyes Bilateral: positive: PERRL, EOMI ENT: positive: Dry mucous membranes Neck: positive: No JVD. negative: Stiff neck Respiratory: positive: Rales, Rhonchi, Other Cardiovascular: positive: Irregularly irregular, Systolic murmur Abdomen: positive: Non-tender, No organomegaly, Nml bowel sounds, No distention Skin: positive: Warm, Dry, Pallor Extremities: positive: Full ROM, Pedal edema Neurologic/Psychiatric: positive: Oriented x3, CN's nml (2-12). negative: Motor nml (generalized weakness, sba to stand and walk, min assist to get off toilet) - LABS Result Diagrams: 01/26/24 04:35 01/26/24 04:35 - SEPSIS Current Stage of Sepsis: Ruled out - FOLLOW UP Follow Up: Logan Rodgers MD - TIME SPENT Time Spent in Discharge (Minutes): 40"
[2024-01-26] MEDS: levoFLOXacin 750 MG/150 ML 750 MG/150 ML BAG IV SCH (13:40)
[2024-01-26 16:09] VITALS: BP 100/62; O2SAT 90
== END 2024-01-26 17:12 | disposition hospice, home (50) | DRG 193 ==
LOC: ED 19:55 → MS2 01-23 02:00
PROVIDERS: ADMIT Internal Medicine; ATTEND Specialist
PROC: 30233N1 Transfusion of Nonautologous Red Blood Cells into Peripheral Vein, Percutaneous Approach (ICD-10-PCS; principal; 2024-01-23)
DX: J18.9 Pneumonia, unspecified organism (principal); I50.23 Acute on chronic systolic (congestive) heart failure; I50.9 Heart failure, unspecified; N18.9 Chronic kidney disease, unspecified; J96.01 Acute respiratory failure with hypoxia; I48.91 Unspecified atrial fibrillation; D64.9 Anemia, unspecified; D75.81 Myelofibrosis; N18.4 Chronic kidney disease, stage 4 (severe); I48.20 Chronic atrial fibrillation, unspecified; J91.8 Pleural effusion in other conditions classified elsewhere; I13.0 Hypertensive heart and chronic kidney disease with heart failure and stage 1 through stage 4 chronic kidney disease, or unspecified chronic kidney disease; R78.81 Bacteremia; I48.92 Unspecified atrial flutter; I24.89 Other forms of acute ischemic heart disease; N13.8 Other obstructive and reflux uropathy; D63.8 Anemia in other chronic diseases classified elsewhere; N40.1 Benign prostatic hyperplasia with lower urinary tract symptoms; R79.89 Other specified abnormal findings of blood chemistry; I25.10 Atherosclerotic heart disease of native coronary artery without angina pectoris; Z66 Do not resuscitate; Z79.899 Other long term (current) drug therapy
CPT/HCPCS: 36415; 71046; 71250; 80048; 80053; 83735; 83880; 84100; 84145; 84484; 85025; 85610; 86850; 86900; 86901; 86920; 87040; 87077; 87154; 93005; 93307; 94640; 96365; 96366; 96367; 99285; A9270; J3370; P9040; 85027